=== PATIENT | female | born 1945 | race Hispanic/Latino ===

== ENCOUNTER 2017-06-11 14:27 | Inpatient (IN) | payer OTHER ==
[2017-06-11 14:27] VITALS: BMI 18.5
[2017-06-11] MEDS ORDERED: Sodium Chloride 0.9% 500 ML IV STA (15:06)
--- NOTE | 2017-06-11 15:09 | ED PDOC ---
HPI: Chest Pain Time Seen by Provider: 06/11/17 14:41 Chief Complaint (Nursing): Flu-like Symptoms Chief Complaint (Provider): Chest pain History Per: Patient History/Exam Limitations: no limitations Onset/Duration Of Symptoms: Days (4) Current Symptoms Are (Timing): Still Present Additional Complaint(s): Pt. with left chest pain going down left arm. Also feels weakness all over. No numbness, tingles, headaches, dizziness, neck pain. No fever or cough. No abd pain, dyspnea. No diarrhea, vomit. Past Medical History Reviewed: Nursing Documentation, Vital Signs Vital Signs: Last Vital Signs Temp 98 F 06/11/17 14:29 Pulse 78 06/11/17 14:29 Resp 18 06/11/17 14:29 BP 148/69 06/11/17 14:29 Pulse Ox 99 06/11/17 15:15 - Medical History PMH: Anxiety, Depression, Gastritis, HTN, Hypercholesterolemia, Hyperlipidemia Denies: HIV, Chronic Kidney Disease - Family History Family History: States: Unknown Family Hx - Social History Current smoker - smoking cessation education provided: No Alcohol: None Drugs: Denies - Home Medications Home Medications: Ambulatory Orders Medication Instructions Recorded HCTZ/Losartan Potassium [Hyzaar 1 tab PO DAILY 05/13/14 12.5 mg-50 mg] Omeprazole 40 mg PO DAILY 05/13/14 Pravastatin Sodium [Pravastatin] 20 mg PO HS 05/13/14 Acetaminophen/Butalbital/Caf 1 tab PO Q6H PRN 01/12/15 [Fioricet] Aspirin [Aspirin Chewable] 81 mg PO DAILY #0 chew 01/12/15 Azelastine HCl 1 drop EACHEYE BID 01/12/15 Enoxaparin [Lovenox] 40 mg SC DAILY #0 syr 01/12/15 Ibuprofen 800 mg PO DAILY PRN 01/12/15 Levocetirizine Dihydrochlori 5 mg PO DAILY 01/12/15 [Xyzal] Morphine 2 mg IVP Q6 PRN #0 cartridge 01/12/15 [id number] Ethyl Esters [Lovaza] 2 gm PO BID 01/12/15 clonazePAM [Klonopin] 0.5 mg PO HS 01/12/15 - Allergies Allergies/Adverse Reactions: Allergies Allergy/AdvReac Type Severity Reaction Status Date / Time No Known Allergies Allergy Verified 09/16/15 20:24 Review of Systems ROS Statement: Except As Marked, All Systems Reviewed And Found Negative Constitutional: Positive for: Weakness Cardiovascular: Positive for: Chest Pain Musculoskeletal: Positive for: Arm Pain Neurological: Positive for: Weakness Physical Exam - Reviewed Nursing Documentation Reviewed: Yes Vital Signs Reviewed: Yes - Physical Exam Appears: Positive for: Non-toxic, No Acute Distress Head Exam: Positive for: ATRAUMATIC, NORMAL INSPECTION, NORMOCEPHALIC Skin: Positive for: Normal Color, Warm, DRY Eye Exam: Positive for: EOMI, Normal appearance, PERRL ENT: Positive for: Normal ENT Inspection Neck: Positive for: Normal, Painless ROM Cardiovascular/Chest: Positive for: Regular Rate, Rhythm, Chest Non Tender. Negative for: Edema Respiratory: Positive for: CNT, Normal Breath Sounds Gastrointestinal/Abdominal: Positive for: Normal Exam, Bowel Sounds, Soft. Negative for: Tenderness Back: Positive for: Normal Inspection. Negative for: L CVA Tenderness, R CVA Tenderness Extremity: Positive for: Normal ROM. Negative for: Tenderness, Pedal Edema Neurologic/Psych: Positive for: Alert, stock taker II-XII, Oriented. Negative for: Motor/Sensory Deficits, Aphasia, Facial Droop - Laboratory Results Result Diagrams: 06/11/17 15:41 06/11/17 15:41 Interpretation Of Abn Labs: no acute - ECG ECG: Positive for: Interpreted By Me, Viewed By Ct ECG Rhythm: Positive for: Normal QRS, Normal ST Segment, Sinus Rhythm O2 Sat by Pulse Oximetry: 99 Pulse Ox Interpretation: Normal - Radiology X-Ray: Read By Radiologist X-Ray Interpretation: No Acute Disease - Progress ED Course And Treament: 1655: Stable. AAOx3. Spoke with Dr. Jeff. Will admit tele. Will give further orders when pt. reaches floor. Pt. pain free. Disposition - Clinical Impression Clinical Impression: Chest pain, Weakness - Patient ED Disposition Is Patient to be Admitted: No Counseled Patient/Family Regarding: Studies Performed, Diagnosis - Disposition Disposition Time: 16:56 Condition: FAIR - Pt Status Changed To: Hospital Disposition Of: Observation - POA Present On Arrival: None Core Measure Indicators: Chest Pain
[2017-06-11 15:47] LABS: BASO % 0.6 % (0.0-2.0); EOS % 0.5 % (0.0-4.0); LYMPH # 1.9 K/uL (1.0-4.3); LYMPH % 29.9 % (20.0-40.0); MEAN CORPUSCULAR HEMOGLOBIN 28.6 pg (27.0-31.0); MEAN CORPUSCULAR HGB CONC 32.6 g/dL (33.0-37.0); MEAN PLATELET VOLUME 9.8 fl (7.2-11.7); MONO # 0.4 K/uL (0.0-0.8); MONO % 6.7 % (0.0-10.0); NEUT % 62.3 % (50.0-75.0); RED CELL DISTRIBUTION WIDTH 13.8 % (11.5-14.5); WHITE BLOOD COUNT 6.5 K/uL (4.8-10.8)
[2017-06-11 15:56] LABS: ALB/GLOB RATIO 1.4 (1.0-2.1); ALKALINE PHOSPHATASE 75 U/L (38-126); ALT/SGPT 29 U/L (9-52); AST/SGOT 26 U/L (14-36); BILIRUBIN,TOTAL 0.5 mg/dl (0.2-1.3); BLOOD UREA NITROGEN 7 mg/dl (7-17); CALCIUM 9.3 mg/dL (8.4-10.2); CARBON DIOXIDE 31 mmol/L (22-30); CHLORIDE 105 mmol/L (98-107); GFR AFRICAN-AMERICAN > 60; GLUCOSE,RANDOM 91 mg/dL (65-105); POTASSIUM 4.6 MMOL/L (3.6-5.0); SODIUM 145 mmol/l (132-148); TOTAL PROTEIN 7.5 G/DL (6.3-8.2)
--- NOTE | 2017-06-11 16:06 | RAD ---
HISTORY: pain COMPARISON: Chest radiograph 09/17/2015. FINDINGS: LUNGS: No active pulmonary disease. PLEURA: No significant pleural effusion identified, no pneumothorax apparent. CARDIOVASCULAR: Normal. OSSEOUS STRUCTURES: No significant abnormalities. VISUALIZED UPPER ABDOMEN: Normal. OTHER FINDINGS: None. IMPRESSION: No interval acute cardiopulmonary disease appreciated.
[2017-06-11 16:07] LABS: PARTIAL THROMBOPLASTIN TIME 29.6 Seconds (25.6-37.1)
--- NOTE | 2017-06-11 16:34 | CT ---
PROCEDURE: CT HEAD WITHOUT CONTRAST. HISTORY: headache COMPARISON: None available. TECHNIQUE: Axial computed tomography images were obtained through the head/brain without intravenous contrast. Radiation dose: Total exam DLP = 752.67 mGy-cm. This CT exam was performed using one or more of the following dose reduction techniques: Automated exposure control, adjustment of the mA and/or kV according to patient size, and/or use of iterative reconstruction technique. FINDINGS: HEMORRHAGE: No intracranial hemorrhage. BRAIN: There is borderline expansion of the ventricular sulcal and cisternal spaces. Density throughout the granda matter and white matter structures above below the tentorium appears grossly unremarkable including throughout the brainstem. There is no mass effect or suspicious extra-axial fluid collection identified. Midline brain and appears diffusely unremarkable as well. The craniocervical junction appears intact. VENTRICLES: Unremarkable. No hydrocephalus. CALVARIUM: Unremarkable. PARANASAL SINUSES: Unremarkable as visualized. No significant inflammatory changes. MASTOID AIR CELLS: Unremarkable as visualized. No inflammatory changes. OTHER FINDINGS: None. IMPRESSION: Borderline diffuse cerebral atrophy with remainder the examination unremarkable. If symptoms persist or worsen consider follow-up CT Head or MRI or is otherwise may be indicated.
[2017-06-12 05:33] LABS: HEMATOCRIT 40.8 % (34.0-47.0); MEAN CELL VOLUME 88.3 fl (81.0-99.0); MEAN CORPUSCULAR HEMOGLOBIN 28.8 pg (27.0-31.0); MEAN CORPUSCULAR HGB CONC 32.6 g/dL (33.0-37.0); RED CELL DISTRIBUTION WIDTH 13.9 % (11.5-14.5); WHITE BLOOD COUNT 6.4 K/uL (4.8-10.8)
[2017-06-12 06:06] LABS: THYROID STIMULATING HORMONE 1.06 mIU/ML (0.46-4.68)
[2017-06-12 08:41] LABS: ALB/GLOB RATIO 1.3 (1.0-2.1); ALKALINE PHOSPHATASE 68 U/L (38-126); ALT/SGPT 22 U/L (9-52); AST/SGOT 51 U/L (14-36); BILIRUBIN,TOTAL 0.5 mg/dl (0.2-1.3); BLOOD UREA NITROGEN 10 mg/dl (7-17); CARBON DIOXIDE 27 mmol/L (22-30); CHLORIDE 108 mmol/L (98-107); CHOLESTEROL 223 mg/dL (0-199); GFR AFRICAN-AMERICAN > 60; GLUCOSE,RANDOM 87 mg/dL (65-105); POTASSIUM 4.3 MMOL/L (3.6-5.0); SODIUM 145 mmol/l (132-148); TOTAL PROTEIN 6.6 G/DL (6.3-8.2)
[2017-06-12] MEDS: Pantoprazole 40 mg EC Tab PO SCH (08:41)
[2017-06-12] MEDS: HCTZ/Losartan 12.5/50 Tab PO SCH (08:42)
[2017-06-12] MEDS: Enoxaparin 40 mg Syringe SC SCH (08:43)
[2017-06-12 09:05] LABS: TROPONIN I 0.014 ng/mL (0.00-0.120)
--- NOTE | 2017-06-12 09:07 | CP.PCM.HP ---
History of Present Illness - History of Present Illness History of Present Illness: 70 YO F was admitted for left sided chest pain radiating down her left arm yesterday. Patient states she was feeling well so she came to the hospital. Today patient is denying chest pain, SOB, and is feeling better. PMH: Anxiety, HTN, hyperlipidemia FH: Denies Allergy: Denies SH: Denies illicit drug use Present on Admission - Present on Admission Any Indicators Present on Admission: No Past Patient History - Infectious Disease Hx of Infectious Diseases: None - Tetanus Immunizations Tetanus Immunization: Unknown - Past Medical History & Family History Past Medical History?: Yes - Past Social History Smoking Status: Never Smoked - CARDIAC Hx Cardiac Disorders: Yes Hx Hypercholesterolemia: Yes Hx Hypertension: Yes - PULMONARY Hx Respiratory Disorders: No - NEUROLOGICAL Hx Neurological Disorder: No - HEENT Hx HEENT Problems: No - RENAL Hx Chronic Kidney Disease: No - ENDOCRINE/METABOLIC Hx Endocrine Disorders: No - HEMATOLOGICAL/ONCOLOGICAL Hx Blood Disorders: No - INTEGUMENTARY Hx Dermatological Problems: No - MUSCULOSKELETAL/RHEUMATOLOGICAL Hx Musculoskeletal Disorders: No Hx Falls: No - GASTROINTESTINAL Hx Gastrointestinal Disorders: Yes Hx Gastritis: Yes - GENITOURINARY/GYNECOLOGICAL Hx Genitourinary Disorders: No - PSYCHIATRIC Hx Psychophysiologic Disorder: Yes Hx Anxiety: Yes Hx Depression: Yes Hx Substance Use: No - SURGICAL HISTORY Hx Surgeries: Yes Hx Section: Yes (x 1) - ANESTHESIA Hx Anesthesia: Yes Hx Anesthesia Reactions: No Hx Malignant Hyperthermia: No Meds Allergies/Adverse Reactions: Allergies Allergy/AdvReac Type Severity Reaction Status Date / Time No Known Allergies Allergy Verified 09/16/15 20:24 Physical Exam - Constitutional Appears: No Acute Distress - Head Exam Head Exam: NORMAL INSPECTION - Eye Exam Eye Exam: Normal appearance - ENT Exam ENT Exam: Mucous Membranes Moist - Respiratory Exam Respiratory Exam: Clear to Auscultation Bilateral. absent: Rhonchi, Wheezes - Cardiovascular Exam Cardiovascular Exam: REGULAR RHYTHM, +S1, +S2 - GI/Abdominal Exam GI & Abdominal Exam: Normal Bowel Sounds, Soft. absent: Tenderness - Extremities Exam Extremities exam: Positive for: normal inspection. Negative for: calf tenderness - Skin Skin Exam: Normal Color, Warm Results - Vital Signs Recent Vital Signs: Last Vital Signs Temp 97.8 F 06/12/17 08:00 Pulse 56 L 06/12/17 08:00 Resp 18 06/12/17 08:00 BP 111/72 06/12/17 08:00 Pulse Ox 99 06/12/17 08:00 - Labs Result Diagrams: 06/12/17 04:30 06/12/17 04:30 Labs: Laboratory Results - last 24 hr 06/11/17 06/11/17 06/11/17 00:17 15:41 15:41 WBC 6.5 RBC 4.77 Hgb 13.7 Hct 42.0 MCV 88.0 D MCH 28.6 MCHC 32.6 L RDW 13.8 Plt Count 225 MPV 9.8 Neut % (Auto) 62.3 Lymph % (Auto) 29.9 Gordon % (Auto) 6.7 Eos % (Auto) 0.5 Baso % (Auto) 0.6 Neut # 4.0 Lymph # 1.9 Gordon # 0.4 Eos # 0.0 Baso # 0.0 PT INR APTT Sodium 145 Potassium 4.6 Chloride 105 Carbon Dioxide 31 H Anion Gap 14 BUN 7 Creatinine 0.6 L Est GFR ( Amer) > 60 Est GFR (Non-Af Amer) > 60 Random Glucose 91 Calcium 9.3 Total Bilirubin 0.5 AST 26 ALT 29 Alkaline Phosphatase 75 Troponin I < 0.0120 < 0.0120 Total Protein 7.5 Albumin 4.3 Globulin 3.2 Albumin/Globulin Ratio 1.4 Triglycerides Cholesterol LDL Cholesterol Direct HDL Cholesterol Vitamin B12 Total T3 TSH 3rd Generation 06/11/17 06/12/17 06/12/17 15:41 04:30 04:30 WBC 6.4 RBC 4.62 Hgb 13.3 Hct 40.8 MCV 88.3 MCH 28.8 MCHC 32.6 L RDW 13.9 Plt Count 213 MPV Neut % (Auto) Lymph % (Auto) Gordon % (Auto) Eos % (Auto) Baso % (Auto) Neut # Lymph # Gordon # Eos # Baso # PT 10.7 INR 1.0 APTT 29.6 Sodium 145 Potassium 4.3 Chloride 108 H Carbon Dioxide 27 Anion Gap 14 BUN 10 Creatinine 0.6 L Est GFR ( Amer) > 60 Est GFR (Non-Af Amer) > 60 Random Glucose 87 Calcium 9.0 Total Bilirubin 0.5 AST 51 H D ALT 22 Alkaline Phosphatase 68 Troponin I Total Protein 6.6 Albumin 3.7 Globulin 2.9 Albumin/Globulin Ratio 1.3 Triglycerides 201 H D Cholesterol 223 H LDL Cholesterol Direct 160 H HDL Cholesterol 21 L Vitamin B12 253 Total T3 1.23 L TSH 3rd Generation 1.06 Assessment & Plan - Assessment and Plan (Free Text) Assessment: 1) Chest pain - r/o ACS - EKG: WNL\ - Consult cardiology Troponin x 2 negative - Follow up with third troponin 2) HTN HCTZ/Losartan 3) DVT prophylaxis - Lovenox
[2017-06-12 09:09] LABS: T4 8.54 ug/dl (5.5-11.0)
--- NOTE | 2017-06-13 06:22 | CARD ---
APPROVED REPORT EXAM: Two-dimensional and M-mode echocardiogram with Doppler and color Doppler. Other Information Quality : FairRhythm : NSR INDICATION Chest Pain 2D DIMENSIONS IVSd0.92 (0.7-1.1cm)Aortic Root (2D)2.74 (2.0-3.7cm) LVDd3.71 (3.9-5.9cm)LVOT Diameter1.60 (1.8-2.4cm) PWd0.67 (0.7-1.1cm)IVSs1.14 (0.8-1.2cm) LVDs2.23 (2.5-4.0cm)FS (%) 39.8 % PWs0.88 (0.8-1.2cm) M-Mode DIMENSIONS Left Atrium (MM)1.65 (2.5-4.0cm)IVSd0.81 (0.7-1.1cm) Aortic Root2.55 (2.2-3.7cm)LVDd4.20 (4.0-5.6cm) Aortic Cusp Exc.1.65 (1.5-2.0cm)PWd0.93 (0.7-1.1cm) IVSs0.90 cmFS (%) 34 % LVDs2.77 (2.0-3.8cm)PWs1.09 cm Mitral Valve MV E Gkoiukyv20.7cm/sMV DECEL [id number] A Xmnfuenv76.0cm/s MV QID71qaQ/A ratio0.9MVA (PHT)2.98cm2 TDI Lateral E' Peak V10.19cm/sMedial E' Peak V10.59cm/sE/Lateral E'5.8 E/Medial E'5.5 Pulmonary Valve PV Peak Qjuljgbp21.3cm/s Tricuspid Valve TR Peak Hkwspwjp250ij/sRAP YFJFAIKV16aaPjFQ Peak Gr.15mmHg ODWG67zsDl LEFT VENTRICLE The left ventricle is normal size. There is normal left ventricular wall thickness. The left ventricular function is normal. The left ventricular ejection fraction is 60% There is normal LV segmental wall motion. The left ventricular diastolic function is normal. No left ventricle thrombus noted on this study. There is no ventricular septal defect visualized. There is no left ventricular aneurysm. There is no mass noted in the left ventricle. RIGHT VENTRICLE The right ventricle is normal size. There is normal right ventricular wall thickness. The right ventricular systolic function is normal. ATRIA The left atrium size is normal. The right atrium size is normal. The interatrial septum is intact with no evidence for an atrial septal defect. AORTIC VALVE The aortic valve is mildly sclerotic. No aortic regurgitation is present. There is no aortic valvular stenosis. There is no aortic valvular vegetation. MITRAL VALVE The mitral valve is normal in structure and function. There is no evidence of mitral valve prolapse. There is no mitral valve stenosis. There is no mitral valve regurgitation noted. TRICUSPID VALVE The tricuspid valve is normal in structure and function. There is no tricuspid valve regurgitation noted. There is no tricuspid valve prolapse or vegetation. There is no tricuspid valve stenosis. PULMONIC VALVE The pulmonary valve is normal in structure and function. There is no pulmonic valvular regurgitation. There is no pulmonic valvular stenosis. GREAT VESSELS The aortic root is normal in size. The ascending aorta is normal in size. The IVC is normal in size and collapses >50% with inspiration. PERICARDIAL EFFUSION The pericardium appears normal. There is no pleural effusion. <Conclusion> Normal LV Function Aortic Valve Sclerosis
--- NOTE | 2017-06-13 06:41 | CARD ---
APPROVED REPORT EKG Measurement Heart [id number] ID [id number] <Conclusion> Normal sinus rhythm Normal ECG
[2017-06-13] MEDS: Pantoprazole 40 mg EC Tab PO SCH (09:38)
[2017-06-13] MEDS: Enoxaparin 40 mg Syringe SC SCH (09:38)
[2017-06-13] MEDS: HCTZ/Losartan 12.5/50 Tab PO SCH (09:38)
--- NOTE | 2017-06-13 14:29 | PN ---
DATE: 06/13/2017 SUBJECTIVE: The patient is seen and examined. Interim events noted. Consults noted and appreciated. Cardiology followup and intervention noted and appreciated. The patient is tentatively scheduled for cardiac cath on Thursday. The patient feels okay. Denies any chest pain. No shortness of breath. PHYSICAL EXAMINATION GENERAL: The patient is in no acute distress. VITAL SIGNS: Stable. HEART: S1 and S2, normal and regular. LUNGS: Good bilateral air exchange. ABDOMEN: Soft and nontender. EXTREMITIES: No edema. No calf swelling. No tenderness. No acute ischemia. CENTRAL NERVOUS SYSTEM: Essentially unchanged. DIAGNOSTIC DATA: Available diagnostic data reviewed. Telemetry monitoring does not show significant arrhythmia. negative. ASSESSMENT AND PLAN: Overall, the patient's general medical condition is stable and improving. Plan as ordered. Jun Jeff MD
[2017-06-14 07:02] LABS: HEMATOCRIT 44.1 % (34.0-47.0); MEAN CELL VOLUME 87.3 fl (81.0-99.0); MEAN CORPUSCULAR HEMOGLOBIN 28.6 pg (27.0-31.0); MEAN CORPUSCULAR HGB CONC 32.8 g/dL (33.0-37.0); RED CELL DISTRIBUTION WIDTH 13.9 % (11.5-14.5); WHITE BLOOD COUNT 7.9 K/uL (4.8-10.8)
[2017-06-14 07:23] LABS: ALB/GLOB RATIO 1.3 (1.0-2.1); ALKALINE PHOSPHATASE 72 U/L (38-126); ALT/SGPT 29 U/L (9-52); AST/SGOT 24 U/L (14-36); BILIRUBIN,TOTAL 0.4 mg/dl (0.2-1.3); BLOOD UREA NITROGEN 11 mg/dl (7-17); CALCIUM 9.2 mg/dL (8.4-10.2); CARBON DIOXIDE 31 mmol/L (22-30); CHLORIDE 102 mmol/L (98-107); GFR AFRICAN-AMERICAN > 60; GLUCOSE,RANDOM 88 mg/dL (65-105); SODIUM 143 mmol/l (132-148); TOTAL PROTEIN 7.2 G/DL (6.3-8.2)
[2017-06-14] MEDS: Pantoprazole 40 mg EC Tab PO SCH (09:22)
[2017-06-14] MEDS: Enoxaparin 40 mg Syringe SC SCH (09:22)
[2017-06-14] MEDS: HCTZ/Losartan 12.5/50 Tab PO SCH (09:23)
--- NOTE | 2017-06-14 13:03 | PN ---
DATE: 06/14/2017 SUBJECTIVE: The patient was seen and examined. Interim events noted. The patient remains in intensive care unit on telemetry monitoring. Denies any chest pain, shortness of breath, or dizziness. PHYSICAL EXAMINATION: GENERAL: The patient is in no acute distress. VITAL SIGNS: Stable. HEART: S1 and S2, normal and regular. LUNGS: Good bilateral air exchange. ABDOMEN: Soft and nontender. EXTREMITIES: No edema. No calf swelling. No tenderness. No acute ischemia. CENTRAL NERVOUS SYSTEM: Essentially unchanged. DIAGNOSTIC DATA: Available diagnostic data reviewed. Telemetry monitoring does not reveal significant arrhythmias. ASSESSMENT AND PLAN: Overall, the patient's general medical condition is stable. The patient needs to have cardiac cath . Plan as ordered. Jun Jeff MD
--- NOTE | 2017-06-14 23:58 | CP.PCM.CON ---
Past Patient History - Infectious Disease Hx of Infectious Diseases: None - Tetanus Immunizations Tetanus Immunization: Unknown - Past Medical History & Family History Past Medical History?: Yes - Past Social History Smoking Status: Never Smoked - CARDIAC Hx Cardiac Disorders: Yes Hx Hypercholesterolemia: Yes Hx Hypertension: Yes - PULMONARY Hx Respiratory Disorders: No - NEUROLOGICAL Hx Neurological Disorder: No - HEENT Hx HEENT Problems: No - RENAL Hx Chronic Kidney Disease: No - ENDOCRINE/METABOLIC Hx Endocrine Disorders: No - HEMATOLOGICAL/ONCOLOGICAL Hx Blood Disorders: No - INTEGUMENTARY Hx Dermatological Problems: No - MUSCULOSKELETAL/RHEUMATOLOGICAL Hx Musculoskeletal Disorders: No Hx Falls: No - GASTROINTESTINAL Hx Gastrointestinal Disorders: Yes Hx Gastritis: Yes - GENITOURINARY/GYNECOLOGICAL Hx Genitourinary Disorders: No - PSYCHIATRIC Hx Psychophysiologic Disorder: Yes Hx Anxiety: Yes Hx Depression: Yes Hx Substance Use: No - SURGICAL HISTORY Hx Surgeries: Yes Hx Section: Yes (x 1) - ANESTHESIA Hx Anesthesia: Yes Hx Anesthesia Reactions: No Hx Malignant Hyperthermia: No Meds Allergies/Adverse Reactions: Allergies Allergy/AdvReac Type Severity Reaction Status Date / Time No Known Allergies Allergy Verified 09/16/15 20:24 - Medications Medications: Current Medications Acetaminophen (Tylenol 325mg Tab) 650 mg PO Q6 PRN PRN Reason: Pain, moderate (4-7) Last Admin: 06/14/17 09:27 Dose: 650 mg Aspirin (Aspirin Chewable) 81 mg PO DAILY [facility] Last Admin: 06/14/17 09:22 Dose: 81 mg Atorvastatin Calcium (Lipitor) 20 mg PO DAILY [facility] Last Admin: 06/14/17 13:55 Dose: Not Given Cyanocobalamin (Vitamin B12 1000 Mcg/Ml Inj) 1,000 mcg IM DAILY [facility] Last Admin: 06/14/17 09:23 Dose: 1,000 mcg Enoxaparin Sodium (Lovenox) 40 mg SC DAILY [facility] PRN Reason: Protocol Last Admin: 06/14/17 09:22 Dose: 40 mg Fluoxetine HCl (Prozac) 20 mg PO DAILY [facility] Last Admin: 06/14/17 09:22 Dose: 20 mg HCTZ/Losartan Potassium (Hyzaar 12.5 Mg-50 Mg) 1 tab PO DAILY [facility] Last Admin: 06/14/17 09:23 Dose: 1 tab Montelukast Sodium (Singulair) 10 mg PO [facility] Last Admin: 06/14/17 22:00 Dose: 10 mg Pantoprazole Sodium (Protonix Ec Tab) 40 mg PO DAILY [facility] Last Admin: 06/14/17 09:22 Dose: 40 mg Results - Vital Signs Recent Vital Signs: Last Vital Signs Temp 98.0 F 06/14/17 21:16 Pulse 66 06/14/17 21:16 Resp 18 06/14/17 21:16 BP 122/73 06/14/17 21:16 Pulse Ox 98 06/14/17 21:16 - Labs Result Diagrams: 06/14/17 06:00 06/14/17 06:00 Labs: Laboratory Results - last 24 hr 06/14/17 06/14/17 06:00 06:00 WBC 7.9 RBC 5.06 Hgb 14.5 Hct 44.1 MCV 87.3 MCH 28.6 MCHC 32.8 L RDW 13.9 Plt Count 244 Sodium 143 Potassium 4.0 Chloride 102 Carbon Dioxide 31 H Anion Gap 14 BUN 11 Creatinine 0.7 Est GFR ( Amer) > 60 Est GFR (Non-Af Amer) > 60 Random Glucose 88 Calcium 9.2 Total Bilirubin 0.4 AST 24 ALT 29 Alkaline Phosphatase 72 Total Protein 7.2 Albumin 4.1 Globulin 3.1 Albumin/Globulin Ratio 1.3
[2017-06-15] MEDS: Enoxaparin 40 mg Syringe SC SCH (09:14)
[2017-06-15] MEDS: Pantoprazole 40 mg EC Tab PO SCH (09:18)
[2017-06-15] MEDS: HCTZ/Losartan 12.5/50 Tab PO SCH (09:18)
[2017-06-15] MEDS ORDERED: Dextrose 5%/0.9% NS 1,000 ML IV SCH (09:30)
--- NOTE | 2017-06-15 13:32 | PN ---
DATE: 06/15/2017 SUBJECTIVE: Patient is seen and examined. Interim events noted. Consults noted and appreciated. Cardiology followup and intervention noted and appreciated. Patient remains in Progressive Care Unit with telemetry monitoring. Patient is for cardiac cath today. Patient feels okay. Denies any chest pain or shortness of breath. PHYSICAL EXAMINATION: GENERAL: Patient is in no acute distress. VITAL SIGNS: Stable. HEART: S1 and S2, normal and regular. LUNGS: Good bilateral air exchange. ABDOMEN: Soft, nontender. EXTREMITIES: No edema. No calf swelling. No tenderness. No acute ischemia. CENTRAL NERVOUS SYSTEM: Essentially unchanged. DIAGNOSTIC DATA: Available diagnostic data reviewed. Telemetry monitoring does not show significant arrhythmias. ASSESSMENT AND PLAN: Overall, patient is clinically stable. The patient is for cardiac cath today. Plan as ordered. Case and plan discussed with patient. Case and plan was also discussed with patient's family yesterday over the phone. Jun Jeff MD
--- NOTE | 2017-06-16 01:02 | CP.PCM.PN ---
Subjective - Date & Time of Evaluation Date of Evaluation: 06/15/17 Time of Evaluation: 12:00 Objective - Vital Signs/Intake and Output Vital Signs (last 24 hours): Temp Pulse Resp BP Pulse Ox 97.6 F 57 L 20 136/70 99 06/16/17 00:14 06/16/17 00:14 06/16/17 00:14 06/16/17 00:14 06/16/17 00:14 - Medications Medications: Current Medications Acetaminophen (Tylenol 325mg Tab) 650 mg PO Q6 PRN PRN Reason: Pain, moderate (4-7) Last Admin: 06/15/17 23:59 Dose: 650 mg Aspirin (Aspirin Chewable) 81 mg PO DAILY [facility] Last Admin: 06/15/17 09:18 Dose: Not Given Atorvastatin Calcium (Lipitor) 20 mg PO DAILY [facility] Last Admin: 06/15/17 09:18 Dose: Not Given Cyanocobalamin (Vitamin B12 1000 Mcg/Ml Inj) 1,000 mcg IM DAILY [facility] Last Admin: 06/15/17 09:18 Dose: Not Given Fluoxetine HCl (Prozac) 20 mg PO DAILY [facility] Last Admin: 06/15/17 09:18 Dose: Not Given HCTZ/Losartan Potassium (Hyzaar 12.5 Mg-50 Mg) 1 tab PO DAILY [facility] Last Admin: 06/15/17 09:18 Dose: Not Given Dextrose/Sodium Chloride (Dextrose 5%/0.9% Ns 1000 Ml) 1,000 mls @ 50 mls/hr IV .Q20H [facility] Stop: 06/16/17 09:18 Montelukast Sodium (Singulair) 10 mg PO HS [facility] Last Admin: 06/15/17 21:13 Dose: 10 mg Pantoprazole Sodium (Protonix Ec Tab) 40 mg PO DAILY [facility] Last Admin: 06/15/17 09:18 Dose: Not Given - Labs Labs: 06/14/17 06:00 06/14/17 06:00 PT 10.7 Seconds (9.8-13.1) 06/11/17 15:41 INR 1.0 (0.9-1.2) 06/11/17 15:41 APTT 29.6 Seconds (25.6-37.1) 06/11/17 15:41 - Constitutional Appears: Well - Head Exam Head Exam: ATRAUMATIC, NORMAL INSPECTION, NORMOCEPHALIC - Eye Exam Eye Exam: EOMI, Normal appearance, PERRL Pupil Exam: NORMAL ACCOMODATION, PERRL - ENT Exam ENT Exam: Mucous Membranes Moist, Normal Exam - Neck Exam Neck Exam: Full ROM, Normal Inspection. absent: Lymphadenopathy - Respiratory Exam Respiratory Exam: Clear to Ausculation Bilateral, NORMAL BREATHING PATTERN - Cardiovascular Exam Cardiovascular Exam: REGULAR RHYTHM, +S1, +S2. absent: Murmur - GI/Abdominal Exam GI & Abdominal Exam: Soft, Normal Bowel Sounds. absent: Tenderness - Rectal Exam Rectal Exam: NORMAL INSPECTION - Exam Exam: Circumcision, NORMAL INSPECTION External exam: NORMAL EXTERNAL EXAM Speculum exam: NORMAL SPECULUM EXAM Bimanual exam: NORMAL BIMANUAL EXAM - Extremities Exam Extremities Exam: Full ROM, Normal Capillary Refill, Normal Inspection. absent : Joint Swelling, Pedal Edema - Back Exam Back Exam: NORMAL INSPECTION - Neurological Exam Neurological Exam: Alert, Awake, CN II-XII Intact, Normal Gait, Oriented x3 - Psychiatric Exam Psychiatric exam: Normal Affect, Normal Mood - Skin Skin Exam: Dry, Intact, Normal Color, Warm Assessment and Plan (1) Chest pain Status: Acute (2) Weakness Status: Acute (3) Dizziness Status: Acute (4) Hyperlipemia, mixed Status: Chronic (5) Hypertension Status: Chronic
--- NOTE | 2017-06-16 08:03 | CP.PCM.PN ---
Subjective - Date & Time of Evaluation Date of Evaluation: 06/16/17 Time of Evaluation: 07:40 - Subjective Subjective: Patient seen and examined at bedside this morning. Patient states she slept well. Denies any overnight events. Denies any chest pain, SOB, nausea or vomiting today. Objective - Vital Signs/Intake and Output Vital Signs (last 24 hours): Temp Pulse Resp BP Pulse Ox 97.6 F 57 L 20 136/70 99 06/16/17 00:14 06/16/17 00:14 06/16/17 00:14 06/16/17 00:14 06/16/17 00:14 - Medications Medications: Current Medications Acetaminophen (Tylenol 325mg Tab) 650 mg PO Q6 PRN PRN Reason: Pain, moderate (4-7) Last Admin: 06/15/17 23:59 Dose: 650 mg Aspirin (Aspirin Chewable) 81 mg PO DAILY [facility] Last Admin: 06/15/17 09:18 Dose: Not Given Atorvastatin Calcium (Lipitor) 20 mg PO DAILY [facility] Last Admin: 06/15/17 09:18 Dose: Not Given Cyanocobalamin (Vitamin B12 1000 Mcg/Ml Inj) 1,000 mcg IM DAILY [facility] Last Admin: 06/15/17 09:18 Dose: Not Given Fluoxetine HCl (Prozac) 20 mg PO DAILY [facility] Last Admin: 06/15/17 09:18 Dose: Not Given HCTZ/Losartan Potassium (Hyzaar 12.5 Mg-50 Mg) 1 tab PO DAILY [facility] Last Admin: 06/15/17 09:18 Dose: Not Given Dextrose/Sodium Chloride (Dextrose 5%/0.9% Ns 1000 Ml) 1,000 mls @ 50 mls/hr IV .Q20H [facility] Stop: 06/16/17 09:18 Montelukast Sodium (Singulair) 10 mg PO HS [facility] Last Admin: 06/15/17 21:13 Dose: 10 mg Pantoprazole Sodium (Protonix Ec Tab) 40 mg PO DAILY [facility] Last Admin: 06/15/17 09:18 Dose: Not Given - Labs Labs: 06/14/17 06:00 06/14/17 06:00 PT 10.7 Seconds (9.8-13.1) 06/11/17 15:41 INR 1.0 (0.9-1.2) 06/11/17 15:41 APTT 29.6 Seconds (25.6-37.1) 06/11/17 15:41 - Constitutional Appears: No Acute Distress - Head Exam Head Exam: NORMAL INSPECTION - Eye Exam Eye Exam: Normal appearance - Respiratory Exam Respiratory Exam: Chest Wall Tenderness, Clear to Ausculation Bilateral, NORMAL BREATHING PATTERN - Cardiovascular Exam Cardiovascular Exam: REGULAR RHYTHM, +S1, +S2 - GI/Abdominal Exam GI & Abdominal Exam: Soft, Normal Bowel Sounds. absent: Tenderness - Extremities Exam Extremities Exam: Normal Inspection. absent: Calf Tenderness - Neurological Exam Neurological Exam: Alert, Awake, Oriented x3 - Skin Skin Exam: Normal Color, Warm Assessment and Plan - Assessment and Plan (Free Text) Assessment: 1) Chest pain - Troponin x 2 neg, 1 troponin is .014 - Cardio consult appreciated - F/U with official cardiac cath interpretation. 2) HTN HCTZ/Losartan 3) DVT prophylaxis - Lovenox
[2017-06-16 08:18] VITALS: RESP 18; O2SAT 98
[2017-06-16] MEDS: HCTZ/Losartan 12.5/50 Tab PO SCH (09:12)
[2017-06-16] MEDS: Pantoprazole 40 mg EC Tab PO SCH (09:12)
[2017-06-16] MEDS ORDERED: Metoprolol Succinate 25 mg XL Tab PO SCH (12:00)
[2017-06-16 12:43] VITALS: BP 108/59; PULSE 82; TEMP 98.9
--- NOTE | 2017-06-16 16:35 | CP.PCM.DIS ---
Provider - Provider Date of Admission: 06/12/17 14:18 Attending physician: Jun Jeff MD Time Spent in preparation of Discharge (in minutes): 30 Hospital Course - Lab Results Lab Results: Most Recent Lab Values WBC 7.9 K/uL (4.8-10.8) 06/14/17 06:00 RBC 5.06 Mil/uL (3.80-5.20) 06/14/17 06:00 Hgb 14.5 g/dL (12.0-16.0) 06/14/17 06:00 Hct 44.1 % (34.0-47.0) 06/14/17 06:00 MCV 87.3 fl (81.0-99.0) 06/14/17 06:00 MCH 28.6 pg (27.0-31.0) 06/14/17 06:00 MCHC 32.8 g/dL (33.0-37.0) L 06/14/17 06:00 RDW 13.9 % (11.5-14.5) 06/14/17 06:00 Plt Count 244 K/uL (130-400) 06/14/17 06:00 MPV 9.8 fl (7.2-11.7) 06/11/17 15:41 Neut % (Auto) 62.3 % (50.0-75.0) 06/11/17 15:41 Lymph % (Auto) 29.9 % (20.0-40.0) 06/11/17 15:41 [place] % (Auto) 6.7 % (0.0-10.0) 06/11/17 15:41 Eos % (Auto) 0.5 % (0.0-4.0) 06/11/17 15:41 Baso % (Auto) 0.6 % (0.0-2.0) 06/11/17 15:41 Neut # 4.0 K/uL (1.8-7.0) 06/11/17 15:41 Lymph # 1.9 K/uL (1.0-4.3) 06/11/17 15:41 [place] # 0.4 K/uL (0.0-0.8) 06/11/17 15:41 Eos # 0.0 K/uL (0.0-0.7) 06/11/17 15:41 Baso # 0.0 K/uL (0.0-0.2) 06/11/17 15:41 PT 10.7 Seconds (9.8-13.1) 06/11/17 15:41 INR 1.0 (0.9-1.2) 06/11/17 15:41 APTT 29.6 Seconds (25.6-37.1) 06/11/17 15:41 Sodium 143 mmol/l (132-148) 06/14/17 06:00 Potassium 4.0 MMOL/L (3.6-5.0) 06/14/17 06:00 Chloride 102 mmol/L (98-107) 06/14/17 06:00 Carbon Dioxide 31 mmol/L (22-30) H 06/14/17 06:00 Anion Gap 14 (10-20) 06/14/17 06:00 BUN 11 mg/dl (7-17) 06/14/17 06:00 Creatinine 0.7 mg/dL (0.7-1.2) 06/14/17 06:00 Est GFR ( Amer) > 60 06/14/17 06:00 Est GFR (Non-Af Amer) > 60 06/14/17 06:00 POC Glucose (mg/dL) 135 mg/dL (65-110) H 06/12/17 20:59 Random Glucose 88 mg/dL (65-105) 06/14/17 06:00 Calcium 9.2 mg/dL (8.4-10.2) 06/14/17 06:00 Total Bilirubin 0.4 mg/dl (0.2-1.3) 06/14/17 06:00 AST 24 U/L (14-36) 06/14/17 06:00 ALT 29 U/L (9-52) 06/14/17 06:00 Alkaline Phosphatase 72 U/L (38-126) 06/14/17 06:00 Troponin I 0.0140 ng/mL (0.00-0.120) 06/12/17 05:15 Total Protein 7.2 G/DL (6.3-8.2) 06/14/17 06:00 Albumin 4.1 g/dL (3.5-5.0) 06/14/17 06:00 Globulin 3.1 gm/dL (2.2-3.9) 06/14/17 06:00 Albumin/Globulin Ratio 1.3 (1.0-2.1) 06/14/17 06:00 Triglycerides 201 mg/DL (0-149) H D 06/12/17 04:30 Cholesterol 223 mg/dL (0-199) H 06/12/17 04:30 LDL Cholesterol Direct 160 mg/dL (0-129) H 06/12/17 04:30 HDL Cholesterol 21 MG/DL (30-70) L 06/12/17 04:30 Vitamin B12 253 pg/mL (239-931) 06/12/17 04:30 Thyroxine (T4) 8.54 ug/dl (5.5-11.0) 06/12/17 05:15 Total T3 1.23 nmol/L (1.49-2.60) L 06/12/17 04:30 TSH 3rd Generation 1.06 mIU/ML (0.46-4.68) 06/12/17 04:30 - Hospital Course Hospital Course: 70 YO F was admitted for left sided chest pain radiating down her left arm. Today patient is doing much better denies any chest pain , SOB, or palpitations. 1) Chest pain - Troponin x 2 neg, 1 troponin is .014 - Cardio consult appreciated - PAtient had a cardiac cath. - Has been cleared by cardio and advised to f/u outpatient 2) HTN HCTZ/Losartan Discharge Exam - Head Exam Head Exam: NORMAL INSPECTION - Eye Exam Eye Exam: Normal appearance - Respiratory Exam Respiratory Exam: Clear to PA & Lateral, NORMAL BREATHING PATTERN - Cardiovascular Exam Cardiovascular Exam: REGULAR RHYTHM, +S1, +S2 - GI/Abdominal Exam GI & Abdominal Exam: Normal Bowel Sounds, Unremarkable - Neurological Exam Neurological exam: Alert, CN II-XII Intact, Oriented x3 - Skin Skin Exam: Normal Color, Warm Discharge Plan - Discharge Medications Prescriptions: Aspirin [Ecotrin] 325 mg PO DAILY #30 tablet. Atorvastatin [Lipitor] 40 mg PO DAILY #30 tab Isosorbide Dinitrate 30 mg PO DAILY #30 tablet Metoprolol Succinate XL [Toprol XL] 25 mg PO DAILY #30 tab - Follow Up Plan Condition: FAIR Disposition: HOME/ ROUTINE Instructions: Weakness (ED) Additional Instructions: patient doing well today, denies cp. sob, dizziness, palpitations s/p L heart cath - R groin clean dry intact 40% LM 50% PLAD pt. started on BB,Statin, Nitrate,ASA, hctz/diovan pt. will f/u with outpatient [phone] f/u with pmd outpatient Rx for all meds sent to outpatient pharmacy Referrals: Pb Correa MD [Medical Doctor] - Tanner Russell MD [Staff Provider] -
== END 2017-06-16 13:41 | disposition home or self-care (01) | DRG 287 ==
LOC: H.ER 14:27 → H.ERHOLD 16:53 → H.TEL 18:34 → OBSVTOIN 06-12 14:18
PROVIDERS: ADMIT Internal Medicine; ATTEND Internal Medicine
PROC: 4A023N7 Measurement of Cardiac Sampling and Pressure, Left Heart, Percutaneous Approach (ICD-10-PCS; principal; 2017-06-15)
PROC: B206YZZ Plain Radiography of Right and Left Heart using Other Contrast (ICD-10-PCS; 2017-06-15)
DX: R07.9 Chest pain, unspecified (principal); I10 Essential (primary) hypertension; E78.2 Mixed hyperlipidemia; F41.9 Anxiety disorder, unspecified; K29.70 Gastritis, unspecified, without bleeding

== ENCOUNTER 2017-06-18 13:27 | Observation (INO) | payer OTHER ==
[2017-06-18 13:27] VITALS: BMI 21.4
[2017-06-18] MEDS ORDERED: Sodium Chloride 0.9% 1,000 ML IV STA (14:06)
--- NOTE | 2017-06-18 14:17 | ED PDOC ---
Syncope/Near Syncope/Dizziness Chief Complaint (Provider): WEAKNESS <Derik Pierson III - Last Filed: 06/18/17 16:36> History Per: Patient Additional Complaint(s): This is a 72 y/o F with a PMHx of Anxiety, HTN and HLD complaining of generalized weakness, severe headache, neck pain and body aches that began yesterday morning and is progressively aggravating. Pt came to ER due to an episode of chest pain 4 days ago, angiogram showed 50% of blockage according to patient. Pt took OTC Ibuprofen with NO improvement of symptoms. Pt denies CP, SOB, abdominal pain, change in bowel movement or peripheral edema. Allergies: NKDA PMHx: HTN and HLD. PSHx: 1 FHx: NC SHx: No tobacco, Alcohol or recreational drugs. <James Medrano - Last Filed: 06/18/17 19:33> Time Seen by Provider: 06/18/17 13:45 Chief Complaint (Nursing): Weakness/Neurological Deficit Past Medical History Vital Signs: Last Vital Signs Temp 98.9 F 06/18/17 13:34 Pulse 85 06/18/17 13:34 Resp 16 06/18/17 13:34 BP 90/50 L 06/18/17 13:34 Pulse Ox 96 06/18/17 16:23 <Derik Pierson III - Last Filed: 06/18/17 16:36> Vital Signs: Last Vital Signs Temp 98.9 F 06/18/17 13:34 Pulse 85 06/18/17 13:34 Resp 16 06/18/17 13:34 BP 90/50 L 06/18/17 13:34 Pulse Ox 96 06/18/17 13:34 - Medical History PMH: Anxiety, Depression, Gastritis, HTN, Hypercholesterolemia, Hyperlipidemia Denies: HIV, Chronic Kidney Disease - Surgical History Surgical History: Pacemaker - Family History Family History: States: Unknown Family Hx, Hypertension <James Medrano - Last Filed: 06/18/17 19:33> - Home Medications Home Medications: Ambulatory Orders Medication Instructions Recorded ALPRAZolam [Xanax] 0.25 mg PO TID PRN 06/11/17 FLUoxetine [Prozac] 20 mg PO DAILY 06/11/17 Losartan/Hydrochlorothiazide 1 tab PO DAILY 06/11/17 [Losartan-Hctz 50-12.5 mg Tab] Montelukast [Singulair] 10 mg PO HS 06/11/17 Omeprazole 40 mg PO DAILY 06/11/17 Aspirin [Ecotrin] 325 mg PO DAILY #30 tablet. 06/16/17 Atorvastatin [Lipitor] 40 mg PO DAILY #30 tab 06/16/17 Cyanocobalamin [Vitamin B12 1000 1,000 mcg IM DAILY vial 06/16/17 mcg/ml Inj] Isosorbide Dinitrate 30 mg PO DAILY #30 tablet 06/16/17 Metoprolol Succinate XL [Toprol XL] 25 mg PO DAILY #30 tab 06/16/17 - Allergies Allergies/Adverse Reactions: Allergies Allergy/AdvReac Type Severity Reaction Status Date / Time No Known Allergies Allergy Verified 09/16/15 20:24 Physical Exam - Reviewed Vital Signs Reviewed: Yes - Physical Exam Appears: Positive for: Well, No Acute Distress Head Exam: Positive for: ATRAUMATIC, NORMAL INSPECTION Eye Exam: Positive for: Normal appearance, EOMI ENT: Positive for: Normal ENT Inspection Neck: Positive for: Normal, Supple, Pain On Movement Of Neck Cardiovascular/Chest: Positive for: Regular Rate, Rhythm Respiratory: Positive for: Normal Breath Sounds Extremity: Positive for: Normal ROM. Negative for: Tenderness, Pedal Edema Neurologic/Psych: Positive for: Alert, material chaser II-XII ((grossly intact)), Oriented. Negative for: Motor/Sensory Deficits, Aphasia, Facial Droop <James Medrano - Last Filed: 06/18/17 19:33> - Laboratory Results Result Diagrams: 06/18/17 14:06 06/18/17 14:06 <Derik Pierson III - Last Filed: 06/18/17 16:36> - Laboratory Results Result Diagrams: 06/18/17 14:06 06/18/17 14:06 - ECG O2 Sat by Pulse Oximetry: 96 <James Medrano - Last Filed: 06/18/17 19:33> Medical Decision Making Medical Decision Making: ATTENDING NOTE Seen and examined w resident agree w findings D/w Dr Russell, rec US Duplex R leg Hgb drop 2 points from prior Mild elev lactate Improving w IVF Endorsed Dr Ferrara pending US and dispo <Derik Pierson III - Last Filed: 06/18/17 16:36> Medical Decision Makin72 y/o F with a PMHx of HLD, HTN and anxiety presenting with generalized weakness. Plan: --EKG --CBC --CMP --Troponin --CK --Urine dipstick --CXR --IV NSS 0.9% Presence of remarkable ecchymosis around catheterization insertion on right leg. US doppler ordered to r/o DVT or aneurysm. Pt complaining of persistent headache, will administer Acetaminophen PO and Head CT scan ordered. 19:25 Pt feeling nauseous. Zofran was ordered. Awaiting Doppler US of right extremity. Transfer of care to Dr Ferrara. <James Medrano - Last Filed: 06/18/17 19:33> Disposition <Derik Pierson III - Last Filed: 06/18/17 16:36> - Patient ED Disposition Is Patient to be Admitted: Transfer of Care (to Dr Ferrara.) - Disposition Disposition: Transfer of Care (to Dr Ferrara.) Disposition Time: 19:25 Patient Signed Over To: Fariba Ferrara <James Medrano - Last Filed: 06/18/17 19:33> - Clinical Impression Clinical Impression: Weakness generalized - Disposition Condition: FAIR Instructions: Weakness (ED) Forms: [facility] (Kyrgyz) Print Language: ROMANIAN
[2017-06-18 14:29] LABS: VENOUS BLOOD GAS BASE EXCESS -3.6 mmol/L (0.0-2.0); VENOUS BLOOD GAS PCO2 73 mmHg (40-60); VENOUS BLOOD PH 7.17 (7.32-7.43)
--- NOTE | 2017-06-18 14:31 | RAD ---
HISTORY: chest pain COMPARISON: 06/11/2017 TECHNIQUE: Chest PA and lateral FINDINGS: LUNGS: No active pulmonary disease. PLEURA: No significant pleural effusion identified. No pneumothorax apparent. CARDIOVASCULAR: Normal. OSSEOUS STRUCTURES: No significant abnormalities. VISUALIZED UPPER ABDOMEN: Normal. OTHER FINDINGS: None. IMPRESSION: No active disease.
[2017-06-18 14:32] LABS: BASO % 0.4 % (0.0-2.0); EOS % 0.1 % (0.0-4.0); HEMATOCRIT 37.6 % (34.0-47.0); LYMPH # 1.7 K/uL (1.0-4.3); LYMPH % 16.3 % (20.0-40.0); MEAN CELL VOLUME 86.9 fl (81.0-99.0); MEAN CORPUSCULAR HEMOGLOBIN 28.8 pg (27.0-31.0); MEAN CORPUSCULAR HGB CONC 33.2 g/dL (33.0-37.0); MONO # 0.6 K/uL (0.0-0.8); MONO % 5.4 % (0.0-10.0); NEUT # 8.2 K/uL (1.8-7.0); NEUT % 77.8 % (50.0-75.0); RED CELL DISTRIBUTION WIDTH 13.7 % (11.5-14.5); WHITE BLOOD COUNT 10.5 K/uL (4.8-10.8)
[2017-06-18 14:34] LABS: BLOOD UREA NITROGEN 13 mg/dl (7-17); CARBON DIOXIDE 27 mmol/L (22-30); CHLORIDE 102 mmol/L (98-107); GFR AFRICAN-AMERICAN > 60; GLUCOSE,RANDOM 144 mg/dL (65-105); SODIUM 141 mmol/l (132-148)
[2017-06-18 14:35] LABS: ALB/GLOB RATIO 1.3 (1.0-2.1); ALKALINE PHOSPHATASE 75 U/L (38-126); ALT/SGPT 30 U/L (9-52); AST/SGOT 23 U/L (14-36); BILIRUBIN,TOTAL 0.7 mg/dl (0.2-1.3); CALCIUM 9.1 mg/dL (8.4-10.2); TOTAL PROTEIN 7.4 G/DL (6.3-8.2)
[2017-06-18 15:03] LABS: RBC URINE 20 /hpf (0-3); URINE BACTERIA RARE (<OCC); URINE BILIRUBIN NEGATIVE (NEGATIVE); URINE BLOOD SMALL (NEGATIVE); URINE COLOR AMBER (YELLOW); URINE GLUCOSE (UA) NEG (Normal); URINE KETONE TRACE mg/dL (NEGATIVE); URINE LEUKOCYTE ESTERASE SMALL Leu/uL (Negative); URINE PROTEIN 30 mg/dL (NEGATIVE); WBC URINE 4 /hpf (0-5)
[2017-06-18 17:06] LABS: VENOUS BLOOD GAS BASE EXCESS 4.7 mmol/L (0.0-2.0); VENOUS BLOOD GAS MODE ROOM AIR; VENOUS BLOOD GAS PCO2 51 mmHg (40-60); VENOUS BLOOD PH 7.39 (7.32-7.43)
--- NOTE | 2017-06-18 17:31 | CT ---
PROCEDURE: CT HEAD WITHOUT CONTRAST. HISTORY: r/o ICH COMPARISON: Comparison made with prior CT scan brain dated 06/11/2017 TECHNIQUE: Axial computed tomography images were obtained through the head/brain without intravenous contrast. Radiation dose: Total exam DLP = 744.05 mGy-cm. This CT exam was performed using one or more of the following dose reduction techniques: Automated exposure control, adjustment of the mA and/or kV according to patient size, and/or use of iterative reconstruction technique. FINDINGS: HEMORRHAGE: No acute parenchymal, subarachnoid or extra-axial hemorrhage. Hemorrhage. BRAIN: Minor chronic periventricular white matter ischemic changes again seen. No evidence of large acute infarct. No obvious parenchymal nor extra-axial mass or collection. . Minimal early vascular calcifications of both carotid siphons Mild generalized volume loss. VENTRICLES: No obstructive hydrocephalus. CALVARIUM: Unremarkable. PARANASAL SINUSES: Unremarkable as visualized. No significant inflammatory changes. MASTOID AIR CELLS: Unremarkable as visualized. No inflammatory changes. OTHER FINDINGS: Orbits and contents grossly unremarkable. IMPRESSION: No acute intracranial hemorrhage. Mild chronic white matter ischemic changes.
--- NOTE | 2017-06-18 19:44 | ED PDOC ---
- Laboratory Results Result Diagrams: 06/19/17 04:20 06/19/17 04:20 - ECG O2 Sat by Pulse Oximetry: 96 - Progress ED Course And Treament: [address] Pierson. Pt pending US to r/o pseudoaneurysm. EXAM: US Duplex Right Lower Extremity Arteries EXAM DATE/TIME: 06/18/2017 4:02 PM CLINICAL HISTORY: 72 years old, female; Pain; Leg, upper; Right; Additional info: S/P cardiac cath ecchymosis r thigh TECHNIQUE: Real-time ultrasound scan of the arteries of the right lower extremity with 2-D granda scale, color Doppler flow and spectral waveform analysis. COMPARISON: No relevant prior studies available. FINDINGS: Right common femoral artery: No acute findings. No occlusion or significant stenosis. Normal waveform. Right superficial femoral artery: No acute findings. No occlusion or significant stenosis. Normal waveform. Right popliteal artery: No acute findings. No occlusion or significant stenosis. Normal waveform. Right calf/foot arteries: No acute findings. No occlusion or significant stenosis. Biphasic waveform. Soft tissues: Unremarkable. IMPRESSION: No acute findings. Thank you for allowing us to participate in the care of your patient. Dictated and Authenticated by: Carolynn Gonzalez MD 06/18/2017 7:26 PM Eastern Time ([place] & [place]) DW Dr Russell. Pt to be hospitalized for further evaluation to Dr. Jeff. Condition: Unchanged Disposition Discussed With : Jun Jeff Doctor Will See Patient In The: Hospital - Clinical Impression Clinical Impression: Weakness generalized - POA Present On Arrival: None - Disposition Disposition: Hospitalized as Observation Patient Disposition Time: 17:00 Condition: FAIR
[2017-06-18] MEDS ORDERED: Apap-Butalbital-Caffeine 325-50-40mg Tab PO PRN (22:31)
[2017-06-18] MEDS: Apap-Butalbital-Caffeine 325-50-40mg Tab PO PRN (23:00)
[2017-06-19] MEDS: Apap-Butalbital-Caffeine 325-50-40mg Tab PO PRN ×4 (04:50→21:23)
[2017-06-19 05:24] LABS: HEMATOCRIT 37.3 % (34.0-47.0); MEAN CELL VOLUME 87.7 fl (81.0-99.0); MEAN CORPUSCULAR HEMOGLOBIN 28.6 pg (27.0-31.0); MEAN CORPUSCULAR HGB CONC 32.6 g/dL (33.0-37.0); RED CELL DISTRIBUTION WIDTH 13.5 % (11.5-14.5); WHITE BLOOD COUNT 8.6 K/uL (4.8-10.8)
[2017-06-19 05:46] LABS: BLOOD UREA NITROGEN 10 mg/dl (7-17); CARBON DIOXIDE 30 mmol/L (22-30); CHLORIDE 103 mmol/L (98-107); GFR AFRICAN-AMERICAN > 60; GLUCOSE,RANDOM 102 mg/dL (65-105); POTASSIUM 4.1 MMOL/L (3.6-5.0); SODIUM 143 mmol/l (132-148); TOTAL PROTEIN 6.9 G/DL (6.3-8.2)
[2017-06-19 05:47] LABS: ALB/GLOB RATIO 1.3 (1.0-2.1); ALKALINE PHOSPHATASE 64 U/L (38-126); ALT/SGPT 29 U/L (9-52); AST/SGOT 21 U/L (14-36); BILIRUBIN,TOTAL 0.8 mg/dl (0.2-1.3)
--- NOTE | 2017-06-19 08:18 | CARD ---
APPROVED REPORT EKG Measurement Heart [id number] <Conclusion> Normal sinus rhythm with sinus arrhythmia Normal ECG
[2017-06-19] MEDS ORDERED: Patient's Own Med (Isosorbide Dinitrate [Isosorbide Dinitrate] 30 MG) PO SCH (09:00)
--- NOTE | 2017-06-19 09:23 | CP.PCM.HP ---
History of Present Illness - History of Present Illness History of Present Illness: 72 YO F w/ PMH of anxiety, htn and HLD presented to the ED for weakness, severe headache and body aches which started two days ago and have been worsening. Patient was previously admitted here 5 days back for chest pain and had a angiogram done. Since the procedure the patient has noticed increased area of bruising on her lateral portion of her right thigh. It is not tender. Pt denies CP, SOB, abdominal pain, change in bowel movement or peripheral edema. Allergies: NKDA PMHx: HTN and HLD. PSHx: 1 FHx: NC SHx: No tobacco, Alcohol or recreational drugs. Present on Admission - Present on Admission Any Indicators Present on Admission: No Past Patient History - Infectious Disease Hx of Infectious Diseases: None - Tetanus Immunizations Tetanus Immunization: Unknown - Past Medical History & Family History Past Medical History?: Yes - Past Social History Smoking Status: Never Smoked - CARDIAC Hx Cardiac Disorders: Yes - PULMONARY Hx Respiratory Disorders: No - NEUROLOGICAL Hx Neurological Disorder: No - HEENT Hx HEENT Problems: No - RENAL Hx Chronic Kidney Disease: No - ENDOCRINE/METABOLIC Hx Endocrine Disorders: No - HEMATOLOGICAL/ONCOLOGICAL Hx Blood Disorders: Yes - INTEGUMENTARY Hx Dermatological Problems: No - MUSCULOSKELETAL/RHEUMATOLOGICAL Hx Musculoskeletal Disorders: Yes - GASTROINTESTINAL Hx Gastritis: Yes - GENITOURINARY/GYNECOLOGICAL Hx Genitourinary Disorders: No - PSYCHIATRIC Hx Substance Use: No - SURGICAL HISTORY Hx Surgeries: Yes Hx Section: Yes (x 1) - ANESTHESIA Hx Anesthesia: Yes Hx Anesthesia Reactions: No Hx Malignant Hyperthermia: No Meds Allergies/Adverse Reactions: Allergies Allergy/AdvReac Type Severity Reaction Status Date / Time No Known Allergies Allergy Verified 09/16/15 20:24 Physical Exam - Constitutional Appears: Well, No Acute Distress - Head Exam Head Exam: ATRAUMATIC, NORMAL INSPECTION, NORMOCEPHALIC - Eye Exam Eye Exam: Normal appearance - Respiratory Exam Respiratory Exam: Clear to Auscultation Bilateral, NORMAL BREATHING PATTERN. absent: Rhonchi, Wheezes - Cardiovascular Exam Cardiovascular Exam: REGULAR RHYTHM, +S1, +S2 - GI/Abdominal Exam GI & Abdominal Exam: Normal Bowel Sounds, Soft. absent: Tenderness - Extremities Exam Extremities exam: Positive for: normal inspection. Negative for: calf tenderness - Neurological Exam Neurological exam: Alert, CN II-XII Intact, Oriented x3 - Skin Additional comments: Lateral portion of right thigh: Ecchymosis purplish in color approx 10 x 7 cm. Non tender on palpation Results - Vital Signs Recent Vital Signs: Last Vital Signs Temp 98.6 F 06/19/17 08:19 Pulse 61 06/19/17 08:19 Resp 18 06/19/17 08:19 BP 127/61 06/19/17 08:19 Pulse Ox 98 06/19/17 08:19 - Labs Result Diagrams: 06/19/17 04:20 06/19/17 04:20 Labs: Laboratory Results - last 24 hr 06/18/17 06/18/17 06/18/17 14:06 14:06 14:18 WBC 10.5 RBC 4.33 Hgb 12.5 D Hct 37.6 MCV 86.9 MCH 28.8 MCHC 33.2 RDW 13.7 Plt Count 246 MPV 10.0 Neut % (Auto) 77.8 H Lymph % (Auto) 16.3 L [place] % (Auto) 5.4 Eos % (Auto) 0.1 Baso % (Auto) 0.4 Neut # 8.2 H Lymph # 1.7 [place] # 0.6 Eos # 0.0 Baso # 0.0 pO2 35 VBG pH 7.17 L* VBG pCO2 73 H* VBG HCO3 20.8 VBG Total CO2 28.8 H VBG O2 Sat (Calc) 65.5 H VBG Base Excess -3.6 L VBG Potassium > 20.0 H* Glucose 153 H Lactate 2.1 FiO2 21.0 Blood Gas Comments Lactate 2.1 Crit Value Called To isaías Simmons Crit Value Called By 203 Crit Value Read Back Y Blood Gas Notified Time 1428 Sodium 141 129.0 L Potassium 4.0 Chloride 102 101.0 Carbon Dioxide 27 Anion Gap 16 BUN 13 Creatinine 0.6 L Est GFR ( Amer) > 60 Est GFR (Non-Af Amer) > 60 Random Glucose 144 H Calcium 9.1 Total Bilirubin 0.7 AST 23 ALT 30 Alkaline Phosphatase 75 Total Creatine Kinase 24 L Troponin I < 0.0120 Total Protein 7.4 Albumin 4.2 Globulin 3.2 Albumin/Globulin Ratio 1.3 Venous Blood Potassium > 20.0 H* Urine Color Urine Clarity Urine pH Ur Specific [place] Urine Protein Urine Glucose (UA) Urine Ketones Urine Blood Urine Nitrate Urine Bilirubin Urine Urobilinogen Ur Leukocyte Esterase Urine RBC (Auto) Urine Microscopic WBC Ur Squamous Epith Cells Urine Bacteria 06/18/17 06/18/17 06/18/17 14:25 16:58 23:12 WBC RBC Hgb Hct MCV MCH MCHC RDW Plt Count MPV Neut % (Auto) Lymph % (Auto) [place] % (Auto) Eos % (Auto) Baso % (Auto) Neut # Lymph # [place] # Eos # Baso # pO2 16 L VBG pH 7.39 VBG pCO2 51 VBG HCO3 26.5 VBG Total CO2 32.5 H VBG O2 Sat (Calc) 29.2 L VBG Base Excess 4.7 H VBG Potassium 4.7 Glucose 120 H Lactate 1.2 FiO2 21.0 Blood Gas Comments Crit Value Called To Crit Value Called By Crit Value Read Back Blood Gas Notified Time Sodium 139.0 Potassium Chloride 107.0 Carbon Dioxide Anion Gap BUN Creatinine Est GFR ( Amer) Est GFR (Non-Af Amer) Random Glucose Calcium Total Bilirubin AST ALT Alkaline Phosphatase Total Creatine Kinase Troponin I 0.0210 Total Protein Albumin Globulin Albumin/Globulin Ratio Venous Blood Potassium 4.7 Urine Color [place] Urine Clarity Slighty-cloudy Urine pH 6.0 Ur Specific [place] 1.025 Urine Protein 30 Urine Glucose (UA) Neg Urine Ketones Trace Urine Blood Small Urine Nitrate Negative Urine Bilirubin Negative Urine Urobilinogen 4.0 H Ur Leukocyte Esterase Small Urine RBC (Auto) 20 H Urine Microscopic WBC 4 Ur Squamous Epith Cells < 1 Urine Bacteria Rare 06/19/17 06/19/17 04:20 04:20 WBC 8.6 RBC 4.26 Hgb 12.2 Hct 37.3 MCV 87.7 MCH 28.6 MCHC 32.6 L RDW 13.5 Plt Count 231 MPV Neut % (Auto) Lymph % (Auto) [place] % (Auto) Eos % (Auto) Baso % (Auto) Neut # Lymph # [place] # Eos # Baso # pO2 VBG pH VBG pCO2 VBG HCO3 VBG Total CO2 VBG O2 Sat (Calc) VBG Base Excess VBG Potassium Glucose Lactate FiO2 Blood Gas Comments Crit Value Called To Crit Value Called By Crit Value Read Back Blood Gas Notified Time Sodium 143 Potassium 4.1 Chloride 103 Carbon Dioxide 30 Anion Gap 14 BUN 10 Creatinine 0.6 L Est GFR ( Amer) > 60 Est GFR (Non-Af Amer) > 60 Random Glucose 102 Calcium 9.0 Total Bilirubin 0.8 AST 21 ALT 29 Alkaline Phosphatase 64 Total Creatine Kinase Troponin I < 0.0120 Total Protein 6.9 Albumin 3.9 Globulin 3.0 Albumin/Globulin Ratio 1.3 Venous Blood Potassium Urine Color Urine Clarity Urine pH Ur Specific [place] Urine Protein Urine Glucose (UA) Urine Ketones Urine Blood Urine Nitrate Urine Bilirubin Urine Urobilinogen Ur Leukocyte Esterase Urine RBC (Auto) Urine Microscopic WBC Ur Squamous Epith Cells Urine Bacteria Assessment & Plan - Assessment and Plan (Free Text) Assessment: 1) Ecchymosis around catheterization site on right leg - F/U lower extremity U/S 2) Persistent headache - Ferocet 1 tab PO Q4 3)HTN - Continue with home meds 4) HLD Lipitor 40 PO daily 5) DVT prophylaxis - Lovenox
[2017-06-19] MEDS: Pantoprazole 40 mg EC Tab PO SCH (09:26)
[2017-06-19] MEDS: Enoxaparin 40 mg Syringe SC SCH ×2 (09:27→12:39)
[2017-06-19] MEDS: Metoprolol Succinate 25 mg XL Tab PO SCH (09:28)
[2017-06-19] MEDS: Aspirin 325 mg EC Tablets PO SCH ×2 (09:32→12:38)
--- NOTE | 2017-06-19 10:35 | US ---
PROCEDURE: Duplex ultrasound of the right lower extremity arteries. HISTORY: S/P CARDIAC CATH ECCHYMOSIS R THIGH COMPARISON: None available. TECHNIQUE: Grayscale and duplex Doppler evaluation of the right common femoral, superficial femoral, popliteal, posterior tibial and dorsalis pedis arteries was performed.. FINDINGS: COMMON FEMORAL ARTERY: Patent. Maximal flow velocity of 208.7 cm/s. SUPERFICIAL FEMORAL ARTERY:Patent. Maximal flow velocity of 139.8 cm/s. POPLITEAL ARTERY:Patent. Maximal flow velocity of 120.2 cm/s. POSTERIOR TIBIAL ARTERY: Patent. Maximal flow velocity of 47.2 cm/s. DORSALIS PEDIS ARTERY: Patent. Maximal flow velocity of 31.7 cm/s. OTHER FINDINGS: None. 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 No evidence of AV fistula or pseudoaneurysm. Concordant results (preliminary interpretation) provided by [facility]. Procedure Completed: 17:58 Preliminary ([facility]) Report: Dictated and Authenticated: 19:26 Final Interpretation: 10:33. June 19, 2017.
--- NOTE | 2017-06-19 11:19 | CP.PCM.PN ---
Subjective - Date & Time of Evaluation Date of Evaluation: 06/19/17 Time of Evaluation: 08:30 - Subjective Subjective: Kvng Castro DO PGY1 - Cardiology Progress Note for Dr. Russell Patient seen and examined at bedside. Patient was admitted yesterday for dehydration and generalized weakness. A mild relative drop in her H/H was noted compared to prior admission, but it is still within the normal range, and she denies any active bleeding. Today, she reports mild improvement in her symptoms. She denies any CP, SOB, or palpitations. She has mild pain in her right groin at rest, and mild tenderness. Objective - Vital Signs/Intake and Output Vital Signs (last 24 hours): Temp Pulse Resp BP Pulse Ox 98.6 F 64 18 127/61 98 06/19/17 08:19 06/19/17 09:28 06/19/17 08:19 06/19/17 09:28 06/19/17 08:19 - Medications Medications: Current Medications Acetaminophen/Butalbital/Caffeine (Fioricet) 1 tab PO Q4 PRN PRN Reason: Headache Last Admin: 06/19/17 04:50 Dose: 1 tab Alprazolam (Xanax) 0.25 mg PO TID PRN PRN Reason: Anxiety Stop: 06/25/17 22:29 Last Admin: 06/19/17 10:22 Dose: 0.25 mg Aspirin (Ecotrin) 325 mg PO DAILY [facility] Atorvastatin Calcium (Lipitor) 40 mg PO DAILY [facility] Last Admin: 06/19/17 09:26 Dose: 40 mg Enoxaparin Sodium (Lovenox) 40 mg SC DAILY [facility] PRN Reason: Protocol Fluoxetine HCl (Prozac) 20 mg PO DAILY [facility] Last Admin: 06/19/17 09:28 Dose: 20 mg Isosorbide Dinitrate (Isordil) 30 mg PO DAILY [facility] Last Admin: 06/19/17 09:27 Dose: 30 mg Metoprolol Succinate (Toprol Xl) 25 mg PO DAILY [facility] Last Admin: 06/19/17 09:28 Dose: 25 mg Montelukast Sodium (Singulair) 10 mg PO HS [facility] Last Admin: 06/18/17 23:00 Dose: 10 mg Pantoprazole Sodium (Protonix Ec Tab) 40 mg PO DAILY [facility] Last Admin: 06/19/17 09:26 Dose: 40 mg - Labs Labs: 10/20/17 04:20 06/19/17 04:20 - Constitutional Appears: Non-toxic, No Acute Distress - Head Exam Head Exam: ATRAUMATIC, NORMOCEPHALIC - Eye Exam Eye Exam: EOMI, Normal appearance - ENT Exam ENT Exam: Mucous Membranes Dry - Neck Exam Neck Exam: Normal Inspection - Respiratory Exam Respiratory Exam: Clear to Ausculation Bilateral, NORMAL BREATHING PATTERN - Cardiovascular Exam Cardiovascular Exam: RRR, +S1, +S2 - Extremities Exam Extremities Exam: absent: Calf Tenderness, Pedal Edema Additional comments: Large right groin ecchymosis, dark purple, appears to be healing, small firm subcutaneous nodule, likely old hematoma, appears to be unchanged since discharge a few days ago - Neurological Exam Neurological Exam: Alert, Awake - Psychiatric Exam Psychiatric exam: Normal Affect, Normal Mood - Skin Skin Exam: Dry, Intact Additional comments: poor turgor Assessment and Plan (1) CAD (coronary artery disease) Assessment & Plan: Patient has history of CAD, s/p SILICA [employer] MIXER on 06/15/17 which showed mild-mod left main and proximal LAD stenosis Patient tolerated procedure well, right groin edema noted after procedure, but no hematoma; good hemostasis acheived Patient currently has large ecchymosis where she previously had some edema; appears to be healing Patient is not currently complaining of CP, SOB, or palpitations Troponins negative x3 Continue ASA, Statin, BB, ACEi, and Nitrate Status: Acute (2) Dehydration Assessment & Plan: Patient received IVF bolus yesterday Appears to have a viral, flu-like illness; likely the cause of her myalgias, headache, and subjective fevers Currently tolerating PO, encouraged increase PO fluid intake Status: Acute
[2017-06-20 00:18] VITALS: RESP 18
[2017-06-20] MEDS: Apap-Butalbital-Caffeine 325-50-40mg Tab PO PRN (03:06)
[2017-06-20] MEDS: Aspirin 325 mg EC Tablets PO SCH (09:40)
[2017-06-20] MEDS: Enoxaparin 40 mg Syringe SC SCH (09:40)
[2017-06-20] MEDS: Pantoprazole 40 mg EC Tab PO SCH (09:40)
[2017-06-20] MEDS: Metoprolol Succinate 25 mg XL Tab PO SCH (09:41)
--- NOTE | 2017-06-20 11:36 | PN ---
DATE: 06/20/2017 SUBJECTIVE: The patient is seen and examined. Interim events noted. Consults noted and appreciated. Cardiology followup and intervention noted and appreciated. The patient remains in Progressive Care Unit on telemetry monitoring. Feels much better. Headache resolved. Abdominal pain resolved. Right leg pain which is present, but improving and controlled on current medication. No chest pain. No shortness of breath. PHYSICAL EXAMINATION: GENERAL: The patient is in no acute distress. VITAL SIGNS: Stable. HEART: S1 and S2, normal and regular. LUNGS: Good bilateral air exchange. ABDOMEN: Soft, nontender. EXTREMITIES: No edema. No calf swelling. No tenderness. No acute ischemia. SKIN: Right groin region, the patient has ecchymosis, but no tenderness or hematoma surrounding. No sign of distal neurovascular compromise. CENTRAL NERVOUS SYSTEM: Essentially unchanged. DIAGNOSTIC DATA: Available diagnostic data reviewed. Telemetry monitoring does not reveal significant arrhythmias. ASSESSMENT AND PLAN: Overall, the patient's general medical condition is stable. Plan as ordered. Jun eJff MD
[2017-06-20 12:16] VITALS: BP 106/59; PULSE 53; TEMP 98.7
[2017-06-20 19:07] VITALS: O2SAT 96
== END 2017-06-20 16:00 | disposition home or self-care (01) ==
LOC: H.ER 13:27 → H.ERHOLD 19:58 → H.TEL 22:07
PROVIDERS: ADMIT Internal Medicine; ATTEND Internal Medicine
DX: E86.0 Dehydration (principal); I25.10 Atherosclerotic heart disease of native coronary artery without angina pectoris; E78.00 Pure hypercholesterolemia, unspecified; F32.9 Major depressive disorder, single episode, unspecified; E78.5 Hyperlipidemia, unspecified; I10 Essential (primary) hypertension; Z79.82 Long term (current) use of aspirin; Z79.899 Other long term (current) drug therapy; F41.9 Anxiety disorder, unspecified; K29.70 Gastritis, unspecified, without bleeding; M79.606 Pain in leg, unspecified; M54.2 Cervicalgia; M79.604 Pain in right leg; R10.9 Unspecified abdominal pain; R51 Headache; S70.11XA Contusion of right thigh, initial encounter; Y84.0 Cardiac catheterization as the cause of abnormal reaction of the patient, or of later complication, without mention of misadventure at the time of the procedure; Y82.9 Unspecified medical devices associated with adverse incidents
CPT/HCPCS: 36415; 70450; 71020; 80053; 81003; 82550; 82803; 84484; 85025; 85027; 93005; 93926; 96374; 99283; G0378; J1650; J2405; J3420; J7040

== ENCOUNTER 2017-12-29 04:37 | Emergency (ER) | payer OTHER ==
[2017-12-29 04:37] VITALS: BMI 21.4
[2017-12-29 05:47] LABS: BASO # 0.1 K/uL (0.0-0.2); BASO % 0.8 % (0.0-2.0); EOS # 0.1 K/uL (0.0-0.7); EOS % 1.4 % (0.0-4.0); HEMOGLOBIN 12.7 g/dL (12.0-16.0); LYMPH # 1.6 K/uL (1.0-4.3); LYMPH % 25.7 % (20.0-40.0); MEAN CELL VOLUME 89.6 fl (81.0-99.0); MEAN CORPUSCULAR HEMOGLOBIN 29.4 pg (27.0-31.0); MEAN CORPUSCULAR HGB CONC 32.8 g/dL (33.0-37.0); MONO # 0.5 K/uL (0.0-0.8); NEUT # 3.9 K/uL (1.8-7.0); NEUT % 64.1 % (50.0-75.0); RBC 4.32 Mil/uL (3.80-5.20); RED CELL DISTRIBUTION WIDTH 13.7 % (11.5-14.5)
[2017-12-29 05:54] LABS: ALB/GLOB RATIO 1.2 (1.0-2.1); ALBUMIN 3.8 g/dL (3.5-5.0); CALCIUM 9.1 mg/dL (8.4-10.2); GFR AFRICAN-AMERICAN > 60; GFR NON-AFRICAN AMERICAN > 60
--- NOTE | 2017-12-29 05:56 | ED PDOC ---
HPI: General Adult Time Seen by Provider: 12/29/17 04:39 Chief Complaint (Nursing): Dizziness/Lightheaded Chief Complaint (Provider): Dizziness History Per: Patient History/Exam Limitations: no limitations Onset/Duration Of Symptoms: Days (x1 day) Current Symptoms Are (Timing): Still Present Additional Complaint(s): 72 year old female presents to ED with complaints of dizziness x1 day and has a past medical history of HTN and hypercholesterolemia. Reports that dizziness is evokes when moving her head side to side. Patient notes she took Thorazine 100mg as she believed the dizziness was secondary to anxiety. Describes the dizziness as the "world spinning". Confirms that she fell on her buttocks secondary to dizziness. (-) fever, vomiting, chest pain, or SOB. PCP: Lauren Shane Past Medical History Reviewed: Historical Data, Nursing Documentation, Vital Signs Vital Signs: Last Vital Signs Temp 97.8 F 12/29/17 07:01 Pulse 64 12/29/17 07:01 Resp 18 12/29/17 07:01 BP 138/85 12/29/17 07:01 Pulse Ox 100 12/29/17 07:01 - Medical History PMH: Anxiety, Depression, Gastritis, HTN, Hypercholesterolemia, Hyperlipidemia Denies: HIV, Chronic Kidney Disease - Surgical History Surgical History: Pacemaker, - Family History Family History: States: Unknown Family Hx, Hypertension - Living Arrangements Living Arrangements: With Family - Social History Current smoker - smoking cessation education provided: No Ex-Smoker (has not smoked in the last 12 months): No Alcohol: None Drugs: Denies - Home Medications Home Medications: Ambulatory Orders Medication Instructions Recorded ALPRAZolam [Xanax] 0.25 mg PO TID PRN 06/11/17 FLUoxetine [Prozac] 20 mg PO DAILY 06/11/17 Losartan/Hydrochlorothiazide 1 tab PO DAILY 06/11/17 [Losartan-Hctz 50-12.5 mg Tab] Montelukast [Singulair] 10 mg PO HS 06/11/17 Omeprazole 40 mg PO DAILY 06/11/17 Aspirin [Ecotrin] 325 mg PO DAILY #30 tablet. 06/16/17 Atorvastatin [Lipitor] 40 mg PO DAILY #30 tab 06/16/17 Cyanocobalamin [Vitamin B12 1000 1,000 mcg IM DAILY vial 06/16/17 mcg/ml Inj] Isosorbide Dinitrate 30 mg PO DAILY #30 tablet 06/16/17 Metoprolol Succinate XL [Toprol XL] 25 mg PO DAILY #30 tab 06/16/17 Acetaminophen/Butalbital/Caf 1 tab PO Q4 PRN tab 06/20/17 [Fioricet] Pantoprazole [Protonix EC Tab] 40 mg PO DAILY ect 06/20/17 Meclizine [Antivert] 12.5 mg PO Q6H PRN #4 tab 12/29/17 - Allergies Allergies/Adverse Reactions: Allergies Allergy/AdvReac Type Severity Reaction Status Date / Time No Known Allergies Allergy Verified 09/16/15 20:24 Review of Systems ROS Statement: Except As Marked, All Systems Reviewed And Found Negative Constitutional: Negative for: Fever Cardiovascular: Negative for: Chest Pain Respiratory: Negative for: Shortness of Breath Gastrointestinal: Negative for: Vomiting Neurological: Positive for: Dizziness Physical Exam - Reviewed Nursing Documentation Reviewed: Yes Vital Signs Reviewed: Yes - Physical Exam Appears: Positive for: Non-toxic, No Acute Distress Skin: Positive for: Normal Color, Warm, Dry Eye Exam: Positive for: Normal appearance Neck: Positive for: Normal (dizzines is evoked when she turns head) Cardiovascular/Chest: Positive for: Regular Rate, Rhythm. Negative for: Murmur Respiratory: Positive for: Normal Breath Sounds. Negative for: Respiratory Distress Gastrointestinal/Abdominal: Positive for: Soft. Negative for: Tenderness Extremity: Positive for: Normal ROM. 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 Negative for: Motor/Sensory Deficits - Laboratory Results Result Diagrams: 12/29/17 05:35 12/29/17 05:35 - ECG ECG: Positive for: Interpreted By Me, Viewed By Me ECG Rhythm: Positive for: Normal ST Segment, Sinus Rhythm Rate: 63 O2 Sat by Pulse Oximetry: 98 (RA) Pulse Ox Interpretation: Normal Medical Decision Making Medical Decision Makin Initial impression: dizziness r/o vertigo Initial plan: * CT HEAD * Labs * Antivert 25mg PO * Re-eval 0548 CT FINDINGS: Brain: Normal. No hemorrhage. No significant white matter disease. No edema. Ventricles: Normal. No ventriculomegaly. Bones/joints: Normal. No acute fracture. Soft tissues: Normal. Sinuses: Unremarkable as visualized. No acute sinusitis. Mastoid air cells: Unremarkable as visualized. No mastoid effusion. IMPRESSION: Since 06/18/17, no significant interval change. No acute intracranial hemorrhage. 0650 Upon re-evaluation patient is feeling much better after meclizine and is stable for discharge home. Patient will follow up with PCP in 1-2 days. Scribe Attestation: Documented by Alexandra Huitron acting as a scribe for Arminda Martinez MD. Scribe Attestation: All medical record entries made by the Scribe were at my direction and personally dictated by me. I have reviewed the chart and agree that the record accurately reflects my personal performance of the history, physical exam, medical decision making, and the department course for this patient. I have also personally directed, reviewed, and agree with the discharge instructions and disposition. Disposition - Clinical Impression Clinical Impression: Vertigo - Patient ED Disposition Is Patient to be Admitted: No Counseled Patient/Family Regarding: Studies Performed, Diagnosis, Need For Followup - Disposition Referrals: Pb Correa MD [Primary Care Provider] - Disposition: Routine/Home Disposition Time: 06:30 Condition: IMPROVED Additional Instructions: follow up with Dr Shane tomorrow for a reevaluation return to the ED with any worsening or concerning symptoms or if the dizziness doesnt improve. Prescriptions: Meclizine [Antivert] 12.5 mg PO Q6H PRN #4 tab PRN Reason: Dizziness Instructions: Vertigo (a Type of Dizziness) Forms: [employer] (Korean) Print Language: ICELANDIC
[2017-12-29 06:21] LABS: ALT/SGPT 39 U/L (9-52); AST/SGOT 31 U/L (14-36); BLOOD UREA NITROGEN 10 mg/dl (7-17)
[2017-12-29 06:58] VITALS: BP 138/85; RESP 18; TEMP 97.8
--- NOTE | 2017-12-29 08:17 | CT ---
PROCEDURE: CT HEAD WITHOUT CONTRAST. HISTORY: headache COMPARISON: CT head dated 06/18/2017 TECHNIQUE: Axial computed tomography images were obtained through the head/brain without intravenous contrast. Radiation dose: Total exam DLP = 676 mGy-cm. This CT exam was performed using one or more of the following dose reduction techniques: Automated exposure control, adjustment of the mA and/or kV according to patient size, and/or use of iterative reconstruction technique. FINDINGS: HEMORRHAGE: No intracranial hemorrhage. BRAIN: No mass effect or edema. Mild scattered focal lucencies in the subcortical and periventricular white matter suggestive for chronic microvascular ischemic change. VENTRICLES: Unremarkable. No hydrocephalus. CALVARIUM: Unremarkable. PARANASAL SINUSES: Unremarkable as visualized. No significant inflammatory changes. MASTOID AIR CELLS: Unremarkable as visualized. No inflammatory changes. OTHER FINDINGS: None. IMPRESSION: No acute intracranial abnormality. If symptoms persists, consider further evaluation with MRI. These findings were preliminarily reported at 5:48 a.m. on 12/29/[address] Silverio Wilburn from [facility].
--- NOTE | 2017-12-29 18:51 | CARD ---
APPROVED REPORT EKG Measurement Heart [id number] <Conclusion> Normal sinus rhythm Normal ECG
[2017-12-30 19:28] VITALS: PULSE 63; O2SAT 98
== END 2017-12-29 07:11 | disposition home or self-care (01) ==
LOC: H.ER 04:37
DX: R42 Dizziness and giddiness (principal); E78.00 Pure hypercholesterolemia, unspecified; F32.9 Major depressive disorder, single episode, unspecified; F41.9 Anxiety disorder, unspecified; I10 Essential (primary) hypertension; Z79.82 Long term (current) use of aspirin; Z87.891 Personal history of nicotine dependence; Z95.0 Presence of cardiac pacemaker

== ENCOUNTER 2018-02-10 14:44 | Observation (INO) | payer OTHER ==
[2018-02-10 14:45] VITALS: BMI 21.4
--- NOTE | 2018-02-10 15:18 | ED PDOC ---
HPI: Chest Pain Time Seen by Provider: 02/10/18 15:00 Chief Complaint (Nursing): Dizziness/Lightheaded Chief Complaint (Provider): chest pain and dizziness History Per: Patient History/Exam Limitations: no limitations Onset/Duration Of Symptoms: Hrs (x4) Current Symptoms Are (Timing): Still Present Quality: Pressure Associated Symptoms: denies: Dyspnea Additional Complaint(s): Marty Carreno is a 72 year old female, with a past medical history of HTN and hypercholesterolemia, who presents to the emergency department complaining of chest pain, dizziness and generalized weakness onset for x4 hrs. Patient describes the chest pain as pressure-like and located on the left side, she was cleaning the house when symptoms occurred. She states dizziness is not room spinning. Patient reports she had a similar pain in May and was seen here for it. She denies any fever, chills, shortness of breath, headache, numbness or tingling, abdominal pain, nausea, vomit or diarrhea. No further medical complaints. PMD: Dr. Correa in [place] Past Medical History Reviewed: Historical Data, Nursing Documentation, Vital Signs Vital Signs: Last Vital Signs Temp 98.3 F 02/10/18 14:52 Pulse 67 02/10/18 15:10 Resp 14 02/10/18 15:10 BP 140/85 02/10/18 15:10 Pulse Ox 100 02/10/18 15:35 - Medical History PMH: Anxiety, Depression, Gastritis, HTN, Hypercholesterolemia Denies: HIV, Chronic Kidney Disease - Family History Family History: States: Unknown Family Hx, Hypertension - Living Arrangements Living Arrangements: With Family - Social History Current smoker - smoking cessation education provided: No Alcohol: None Drugs: Denies - Immunization History Hx Tetanus Toxoid Vaccination: No Hx Influenza Vaccination: No Hx Pneumococcal Vaccination: Yes - Home Medications Home Medications: Ambulatory Orders Medication Instructions Recorded ALPRAZolam [Xanax] 0.25 mg PO TID PRN 06/11/17 FLUoxetine [Prozac] 20 mg PO DAILY 06/11/17 Losartan/Hydrochlorothiazide 1 tab PO DAILY 06/11/17 [Losartan-Hctz 50-12.5 mg Tab] Montelukast [Singulair] 10 mg PO HS 06/11/17 Omeprazole 40 mg PO DAILY 06/11/17 Aspirin [Ecotrin] 325 mg PO DAILY #30 tablet.dr 06/16/17 Atorvastatin [Lipitor] 40 mg PO DAILY #30 tab 06/16/17 Cyanocobalamin [Vitamin B12 1000 1,000 mcg IM DAILY vial 06/16/17 mcg/ml Inj] Isosorbide Dinitrate 30 mg PO DAILY #30 tablet 06/16/17 Metoprolol Succinate XL [Toprol XL] 25 mg PO DAILY #30 tab 06/16/17 Acetaminophen/Butalbital/Caf 1 tab PO Q4 PRN tab 06/20/17 [Fioricet] Pantoprazole [Protonix EC Tab] 40 mg PO DAILY ect 06/20/17 Meclizine [Antivert] 12.5 mg PO Q6H PRN #4 tab 12/29/17 - Allergies Allergies/Adverse Reactions: Allergies Allergy/AdvReac Type Severity Reaction Status Date / Time No Known Allergies Allergy Verified 09/16/15 20:24 LAUREL Risk Score for UA/NSTEMI - LAUREL Risk Score Age > 64: YES Known CAD (Stenosis greater than 50%): NO Aspirin use in past 7 days: NO Severe Angina: NO EKG ST changes greater than 0.5mm: NO Positive Cardiac Marker: NO LAUREL Score: 1 Risk %: 5% Review of Systems ROS Statement: Except As Marked, All Systems Reviewed And Found Negative Constitutional: Positive for: Weakness (generalized). Negative for: Fever, Chills Cardiovascular: Positive for: Chest Pain (left sided pressure) Respiratory: Negative for: Shortness of Breath Gastrointestinal: Negative for: Vomiting, Abdominal Pain, Diarrhea Neurological: Positive for: Dizziness. Negative for: Weakness, Numbness, Headache Physical Exam - Reviewed Nursing Documentation Reviewed: Yes Vital Signs Reviewed: Yes - Physical Exam Appears: Positive for: Non-toxic Head Exam: Positive for: ATRAUMATIC, NORMOCEPHALIC Skin: Positive for: Normal Color, Warm, Dry Eye Exam: Positive for: Normal appearance, EOMI, PERRL ENT: Positive for: Normal ENT Inspection Neck: Positive for: Painless ROM, Supple Cardiovascular/Chest: Positive for: Regular Rate, Rhythm. Negative for: Murmur Respiratory: Positive for: Normal Breath Sounds. Negative for: Respiratory Distress Gastrointestinal/Abdominal: Positive for: Normal Exam, Soft. Negative for: Tenderness Back: Negative for: L CVA Tenderness, R CVA Tenderness, Vertebral Tenderness Extremity: Positive for: Normal ROM (upper and lower extremities). Negative for : Tenderness, Deformity, Swelling Neurologic/Psych: Positive for: Alert, Oriented. Negative for: Motor/Sensory Deficits - Laboratory Results Result Diagrams: 02/10/18 15:48 02/10/18 15:48 Interpretation Of Abn Labs: no acute - ECG ECG: Positive for: Interpreted By Me, Viewed By Me ECG Rhythm: Positive for: Normal QRS, Normal ST Segment, Sinus Rhythm O2 Sat by Pulse Oximetry: 100 (RA) Pulse Ox Interpretation: Normal - Radiology X-Ray: Interpreted by Me, Viewed By Me X-Ray Interpretation: No Acute Disease - Progress ED Course And Treament: 1637: Spoke with Dr. Jeff. Will admit tele obs. Will give further orders when pt. reaches floor. Pt. is pain free. Tolerated PO. Medical Decision Making Medical Decision Making: Time: 15:00 Initial Impression: chest pain Initial Plan: --EKG --CMP --Troponin I --CBC w/ differential --PTT --PT --Chest portable [RAD] --Aspirin 325mg PO --Sodium Chloride 500 ml IV 100 mls/hr --Reevaluation ----- Scribe Attestation: Documented by Yared Singh, acting as a scribe for Dax Terry MD. Provider Scribe Attestation: All medical record entries made by the Scribe were at my direction and personally dictated by me. I have reviewed the chart and agree that the record accurately reflects my personal performance of the history, physical exam, medical decision making, and the department course for this patient. I have also personally directed, reviewed, and agree with the discharge instructions and disposition. Disposition - Clinical Impression Clinical Impression: Chest pain - Patient ED Disposition Is Patient to be Admitted: Yes Counseled Patient/Family Regarding: Studies Performed, Diagnosis - Disposition Disposition Time: 16:00 Condition: FAIR
[2018-02-10] MEDS ORDERED: Sodium Chloride 0.9% 500 ML IV STA (15:26)
[2018-02-10 15:58] LABS: BASO % 0.4 % (0.0-2.0); EOS # 0.1 K/uL (0.0-0.7); EOS % 1.3 % (0.0-4.0); HEMOGLOBIN 13.3 g/dL (12.0-16.0); LYMPH # 2.6 K/uL (1.0-4.3); LYMPH % 36.1 % (20.0-40.0); MEAN CORPUSCULAR HEMOGLOBIN 30.2 pg (27.0-31.0); MEAN CORPUSCULAR HGB CONC 34.3 g/dL (33.0-37.0); MEAN PLATELET VOLUME 9.4 fl (7.2-11.7); MONO # 0.7 K/uL (0.0-0.8); NEUT # 3.9 K/uL (1.8-7.0); NEUT % 53.2 % (50.0-75.0); NRBC % 0.1 % (0.0-0.0); RBC 4.39 Mil/uL (3.80-5.20); RED CELL DISTRIBUTION WIDTH 13.4 % (11.5-14.5); WHITE BLOOD COUNT 7.3 K/uL (4.8-10.8)
[2018-02-10 16:11] LABS: ALB/GLOB RATIO 1.2 (1.0-2.1); ALBUMIN 3.8 g/dL (3.5-5.0); ALT/SGPT 27 U/L (9-52); AST/SGOT 32 U/L (14-36); BLOOD UREA NITROGEN 10 mg/dl (7-17); CALCIUM 9.4 mg/dL (8.4-10.2); GFR AFRICAN-AMERICAN > 60; GFR NON-AFRICAN AMERICAN > 60
[2018-02-10 16:12] LABS: INR 0.9 (0.9-1.2); PARTIAL THROMBOPLASTIN TIME 29.6 Seconds (25.6-37.1); PROTHROMBIN TIME 9.9 Seconds (9.8-13.1)
--- NOTE | 2018-02-10 16:27 | RAD ---
HISTORY: pain COMPARISON: 06/18/2017 FINDINGS: LUNGS: No active pulmonary disease. PLEURA: No significant pleural effusion identified, no pneumothorax apparent. CARDIOVASCULAR: Normal. OSSEOUS STRUCTURES: No significant abnormalities. VISUALIZED UPPER ABDOMEN: Normal. OTHER FINDINGS: None. IMPRESSION: No active disease.
[2018-02-10] MEDS ORDERED: Aspirin 325 mg EC Tablets PO ONE (16:37)
[2018-02-10 20:22] VITALS: RESP 18
[2018-02-10] MEDS ORDERED: Apap-Butalbital-Caffeine 325-50-40mg Tab PO PRN (21:17)
[2018-02-10] MEDS ORDERED: POLYETHYLENE GLYCOL 3350 17 GM/Dose PACKET PO PRN (21:17)
[2018-02-10] MEDS ORDERED: Pravastatin Sodium 40 MG TAB PO SCH (22:00)
[2018-02-11 07:53] VITALS: O2SAT 97
[2018-02-11] MEDS ORDERED: Multivitamin With Minerals Tab PO SCH (09:00)
[2018-02-11] MEDS ORDERED: Enoxaparin 40 mg Syringe SC SCH (09:00)
[2018-02-11] MEDS ORDERED: Metoprolol Succinate 25 mg XL Tab PO SCH (09:00)
[2018-02-11] MEDS ORDERED: Pantoprazole 40 mg EC Tab PO SCH (09:00)
--- NOTE | 2018-02-11 09:07 | CP.PCM.CON ---
History of Present Illness - History of Present Illness History of Present Illness: Consultation for evaluation of chest pain HPI: 72 year old female with hx of HTN, dyslipidemia , s/p LHCx in 06/16 which showed moderate LAD disease , was clinically asymptomatic on medical management presenting with c/o chest pains and dizziness for 4 hours prior to presentation. Says that symptoms started while she was working in her house. Review of Systems - Review of Systems Systems not reviewed;Unavailable: Acuity of Condition - Constitutional Constitutional: As Per HPI - EENT Eyes: As Per HPI Ears: As Per HPI Nose/Mouth/Throat: As Per HPI - Breasts Breasts: As Per HPI - Cardiovascular Cardiovascular: As Per HPI - Respiratory Respiratory: As Per HPI - Gastrointestinal Gastrointestinal: As Per HPI - Genitourinary Genitourinary: As Per HPI - Reproductive: Female Reproductive:Female: As Per HPI - Menstruation Menstruation: As Per HPI - Musculoskeletal Musculoskeletal: As Per HPI - Integumentary Integumentary: As Per HPI - Neurological Neurological: As Per HPI - Psychiatric Psychiatric: As Per HPI - Endocrine Endocrine: As Per HPI - Hematologic/Lymphatic Hematologic: As Per HPI Past Patient History - Infectious Disease Hx of Infectious Diseases: None - Tetanus Immunizations Tetanus Immunization: Unknown - Past Medical History & Family History Past Medical History?: Yes - Past Social History Smoking Status: Never Smoked - CARDIAC Hx Cardiac Disorders: Yes - PULMONARY Hx Respiratory Disorders: No - NEUROLOGICAL Hx Neurological Disorder: No - HEENT Hx HEENT Problems: No - RENAL Hx Chronic Kidney Disease: No - ENDOCRINE/METABOLIC Hx Endocrine Disorders: No - HEMATOLOGICAL/ONCOLOGICAL Hx Human Immunodeficiency Virus (HIV): No - INTEGUMENTARY Hx Dermatological Problems: No - MUSCULOSKELETAL/RHEUMATOLOGICAL Hx Musculoskeletal Disorders: Yes Hx Falls: No - GASTROINTESTINAL Hx Gastritis: Yes - GENITOURINARY/GYNECOLOGICAL Hx Genitourinary Disorders: No - PSYCHIATRIC Hx Psychophysiologic Disorder: Yes Hx Substance Use: No - SURGICAL HISTORY Hx Surgeries: Yes Hx Section: Yes (x 1) - ANESTHESIA Hx Anesthesia: Yes Hx Anesthesia Reactions: No Hx Malignant Hyperthermia: No Meds Allergies/Adverse Reactions: Allergies Allergy/AdvReac Type Severity Reaction Status Date / Time No Known Allergies Allergy Verified 09/16/15 20:24 - Medications Medications: Current Medications Acetaminophen/Butalbital/Caffeine (Fioricet) 1 tab PO Q4 PRN PRN Reason: Migraine headache Alprazolam (Xanax) 0.25 mg PO Q12 [facility] Stop: 02/17/18 22:01 Last Admin: 02/11/18 08:33 Dose: 0.25 mg Enoxaparin Sodium (Lovenox) 40 mg SC DAILY [facility] PRN Reason: Protocol Last Admin: 02/11/18 08:34 Dose: 40 mg Losartan Potassium (Cozaar) 25 mg PO DAILY [facility] Last Admin: 02/11/18 08:34 Dose: 25 mg Meclizine HCl (Antivert) 25 mg PO Q8 PRN PRN Reason: Dizziness Metoprolol Succinate (Toprol Xl) 25 mg PO DAILY [facility] Last Admin: 02/11/18 08:34 Dose: 25 mg Multivitamins/Minerals (Therapeutic-M Tab) 1 tab PO DAILY [facility] Last Admin: 02/11/18 08:34 Dose: 1 tab Pantoprazole Sodium (Protonix Ec Tab) 40 mg PO DAILY [facility] Last Admin: 02/11/18 08:34 Dose: 40 mg Polyethylene Glycol (Miralax) 17 gm PO BID PRN PRN Reason: Constipation Pravastatin Sodium (Pravachol) 40 mg PO HS [facility] Last Admin: 02/10/18 22:41 Dose: 40 mg Physical Exam - Constitutional Appears: Well - Head Exam Head Exam: ATRAUMATIC, NORMAL INSPECTION, NORMOCEPHALIC - Eye Exam Eye Exam: EOMI, Normal appearance, PERRL Pupil Exam: NORMAL ACCOMODATION, PERRL - ENT Exam ENT Exam: Mucous Membranes Moist, Normal Exam - Neck Exam Neck exam: Positive for: Normal Inspection - Respiratory Exam Respiratory Exam: Clear to Auscultation Bilateral, NORMAL BREATHING PATTERN - Cardiovascular Exam Cardiovascular Exam: REGULAR RHYTHM, +S1, +S2, Systolic Murmur - GI/Abdominal Exam GI & Abdominal Exam: Normal Bowel Sounds, Soft. absent: Tenderness - Extremities Exam Extremities exam: Positive for: normal inspection - Back Exam Back exam: NORMAL INSPECTION - Neurological Exam Neurological exam: Alert, CN II-XII Intact, Normal Gait, Oriented x3, Reflexes Normal - Psychiatric Exam Psychiatric exam: Normal Affect, Normal Mood - Skin Skin Exam: Dry, Intact, Normal Color, Warm Results - Vital Signs Recent Vital Signs: Last Vital Signs Temp 97.9 F 02/11/18 07:52 Pulse 65 02/11/18 08:34 Resp 18 02/11/18 07:52 BP 117/73 02/11/18 08:34 Pulse Ox 97 02/11/18 07:52 - Labs Result Diagrams: 02/10/18 15:48 02/10/18 15:48 Labs: Laboratory Results - last 24 hr 02/10/18 02/10/18 02/10/18 15:48 15:48 15:48 WBC 7.3 RBC 4.39 Hgb 13.3 Hct 38.6 MCV 88.0 MCH 30.2 MCHC 34.3 RDW 13.4 Plt Count 221 MPV 9.4 Neut % (Auto) 53.2 Lymph % (Auto) 36.1 [place] % (Auto) 9.0 Eos % (Auto) 1.3 Baso % (Auto) 0.4 Neut # (Auto) 3.9 Lymph # (Auto) 2.6 [place] # (Auto) 0.7 Eos # (Auto) 0.1 Baso # (Auto) 0.0 PT 9.9 INR 0.9 APTT 29.6 Sodium 143 Potassium 4.3 Chloride 105 Carbon Dioxide 29 Anion Gap 13 BUN 10 Creatinine 0.5 L Est GFR ( Amer) > 60 Est GFR (Non-Af Amer) > 60 Random Glucose 76 Calcium 9.4 Total Bilirubin 0.6 AST 32 ALT 27 Alkaline Phosphatase 84 Troponin I < 0.0120 Total Protein 7.1 Albumin 3.8 Globulin 3.3 Albumin/Globulin Ratio 1.2 02/11/18 00:01 WBC RBC Hgb Hct MCV MCH MCHC RDW Plt Count MPV Neut % (Auto) Lymph % (Auto) [place] % (Auto) Eos % (Auto) Baso % (Auto) Neut # (Auto) Lymph # (Auto) [place] # (Auto) Eos # (Auto) Baso # (Auto) PT INR APTT Sodium Potassium Chloride Carbon Dioxide Anion Gap BUN Creatinine Est GFR ( Amer) Est GFR (Non-Af Amer) Random Glucose Calcium Total Bilirubin AST ALT Alkaline Phosphatase Troponin I < 0.0120 Total Protein Albumin Globulin Albumin/Globulin Ratio Assessment & Plan (1) Chest pain Status: Acute (2) Dyslipidemia Status: Acute (3) Dizziness Status: Acute (4) Hypertension Status: Chronic
[2018-02-11 09:13] LABS: BASO % 0.6 % (0.0-2.0); EOS # 0.1 K/uL (0.0-0.7); EOS % 1.5 % (0.0-4.0); HEMOGLOBIN 14.2 g/dL (12.0-16.0); LYMPH # 2.5 K/uL (1.0-4.3); LYMPH % 39.8 % (20.0-40.0); MEAN CELL VOLUME 87.9 fl (81.0-99.0); MEAN CORPUSCULAR HEMOGLOBIN 29.4 pg (27.0-31.0); MEAN CORPUSCULAR HGB CONC 33.4 g/dL (33.0-37.0); MEAN PLATELET VOLUME 9.5 fl (7.2-11.7); MONO # 0.5 K/uL (0.0-0.8); MONO % 7.9 % (0.0-10.0); NEUT # 3.1 K/uL (1.8-7.0); NEUT % 50.2 % (50.0-75.0); NRBC % 0.1 % (0.0-0.0); RBC 4.82 Mil/uL (3.80-5.20); RED CELL DISTRIBUTION WIDTH 13.6 % (11.5-14.5); WHITE BLOOD COUNT 6.2 K/uL (4.8-10.8)
[2018-02-11 09:29] LABS: ALB/GLOB RATIO 1.2 (1.0-2.1); ALBUMIN 4.1 g/dL (3.5-5.0); ALT/SGPT 30 U/L (9-52); AST/SGOT 33 U/L (14-36); BLOOD UREA NITROGEN 9 mg/dl (7-17); CALCIUM 9.1 mg/dL (8.4-10.2); GFR AFRICAN-AMERICAN > 60; GFR NON-AFRICAN AMERICAN > 60; HDL CHOLESTEROL 27 MG/DL (30-70)
--- NOTE | 2018-02-11 09:35 | CP.PCM.HP ---
History of Present Illness - History of Present Illness History of Present Illness: CC: chest pain HPI: 72 y/o woman w/ pmh of HTN, HLD presented to ED w/ chest pain. Patient reports chest pain started 4 hours prior to ED arrival. Patient reports pain is pressure-like in nature, left sided, non-radiating, no alleviating/ exacerbating factors, occurred while cleaning her house. Patient denies headaches, SOB, abdominal pain, nasuea, vomiting, diarrhea, dysuria, or fever. PMD: Dr. Correa PMH: HTN, HLD meds: see med list allergies: NKDA PSH: , cath 05/2017 Fam: non-contributory SOC: denies smoking, alcohol, and drugs ROS: 12 points assessed and negative unless otherwise reported in HPI Present on Admission - Present on Admission Any Indicators Present on Admission: No History of DVT/PE: No History of Uncontrolled Diabetes: No Urinary Catheter: No Decubitus Ulcer Present: No Review of Systems - Review of Systems All systems: reviewed and no additional remarkable complaints except - Constitutional Constitutional: absent: Chills, Fever - EENT Eyes: absent: Change in Vision - Cardiovascular Cardiovascular: As Per HPI, Chest Pain. absent: Palpitations - Respiratory Respiratory: absent: Dyspnea - Gastrointestinal Gastrointestinal: absent: Abdominal Pain, Diarrhea, Nausea, Vomiting - Genitourinary Genitourinary: absent: Dysuria - Integumentary Integumentary: absent: Rash - Neurological Neurological: absent: Headaches Past Patient History - Infectious Disease Hx of Infectious Diseases: None - Tetanus Immunizations Tetanus Immunization: Unknown - Past Medical History & Family History Past Medical History?: Yes - Past Social History Smoking Status: Never Smoked - CARDIAC Hx Cardiac Disorders: Yes - PULMONARY Hx Respiratory Disorders: No - NEUROLOGICAL Hx Neurological Disorder: No - HEENT Hx HEENT Problems: No - RENAL Hx Chronic Kidney Disease: No - ENDOCRINE/METABOLIC Hx Endocrine Disorders: No - HEMATOLOGICAL/ONCOLOGICAL Hx Human Immunodeficiency Virus (HIV): No - INTEGUMENTARY Hx Dermatological Problems: No - MUSCULOSKELETAL/RHEUMATOLOGICAL Hx Musculoskeletal Disorders: Yes Hx Falls: No - GASTROINTESTINAL Hx Gastritis: Yes - GENITOURINARY/GYNECOLOGICAL Hx Genitourinary Disorders: No - PSYCHIATRIC Hx Psychophysiologic Disorder: Yes Hx Substance Use: No - SURGICAL HISTORY Hx Surgeries: Yes Hx Section: Yes (x 1) - ANESTHESIA Hx Anesthesia: Yes Hx Anesthesia Reactions: No Hx Malignant Hyperthermia: No Meds Allergies/Adverse Reactions: Allergies Allergy/AdvReac Type Severity Reaction Status Date / Time No Known Allergies Allergy Verified 09/16/15 20:24 Physical Exam - Constitutional Appears: Non-toxic, No Acute Distress - Head Exam Head Exam: ATRAUMATIC, NORMAL INSPECTION, NORMOCEPHALIC - Eye Exam Eye Exam: Normal appearance - ENT Exam ENT Exam: Mucous Membranes Moist - Neck Exam Neck exam: Positive for: Full Rom. Negative for: Tenderness - Respiratory Exam Respiratory Exam: Clear to Auscultation Bilateral. absent: Accessory Muscle Use , Decreased Breath Sounds, Rales, Rhonchi, Wheezes, Respiratory Distress - Cardiovascular Exam Cardiovascular Exam: REGULAR RHYTHM. absent: Tachycardia - GI/Abdominal Exam GI & Abdominal Exam: Normal Bowel Sounds, Soft. absent: Distended, Tenderness - Extremities Exam Extremities exam: Positive for: normal inspection. Negative for: calf tenderness - Neurological Exam Neurological exam: Alert, CN II-XII Intact, Normal Gait, Oriented x3 - Skin Skin Exam: Dry, Intact, Normal Color, Warm Results - Vital Signs Recent Vital Signs: Last Vital Signs Temp 97.9 F 02/11/18 07:52 Pulse 65 02/11/18 08:34 Resp 18 02/11/18 07:52 BP 117/73 02/11/18 08:34 Pulse Ox 97 02/11/18 07:52 - Labs Result Diagrams: 02/11/18 09:02 02/11/18 09:02 Labs: Laboratory Results - last 24 hr 02/10/18 02/10/18 02/10/18 15:48 15:48 15:48 WBC 7.3 RBC 4.39 Hgb 13.3 Hct 38.6 MCV 88.0 MCH 30.2 MCHC 34.3 RDW 13.4 Plt Count 221 MPV 9.4 Neut % (Auto) 53.2 Lymph % (Auto) 36.1 [place] % (Auto) 9.0 Eos % (Auto) 1.3 Baso % (Auto) 0.4 Neut # (Auto) 3.9 Lymph # (Auto) 2.6 [place] # (Auto) 0.7 Eos # (Auto) 0.1 Baso # (Auto) 0.0 PT 9.9 INR 0.9 APTT 29.6 Sodium 143 Potassium 4.3 Chloride 105 Carbon Dioxide 29 Anion Gap 13 BUN 10 Creatinine 0.5 L Est GFR ( Amer) > 60 Est GFR (Non-Af Amer) > 60 Random Glucose 76 Calcium 9.4 Total Bilirubin 0.6 AST 32 ALT 27 Alkaline Phosphatase 84 Troponin I < 0.0120 Total Protein 7.1 Albumin 3.8 Globulin 3.3 Albumin/Globulin Ratio 1.2 Triglycerides Cholesterol HDL Cholesterol 02/11/18 02/11/18 02/11/18 00:01 09:02 09:02 WBC 6.2 RBC 4.82 Hgb 14.2 Hct 42.4 MCV 87.9 MCH 29.4 MCHC 33.4 RDW 13.6 Plt Count 247 MPV 9.5 Neut % (Auto) 50.2 Lymph % (Auto) 39.8 [place] % (Auto) 7.9 Eos % (Auto) 1.5 Baso % (Auto) 0.6 Neut # (Auto) 3.1 Lymph # (Auto) 2.5 [place] # (Auto) 0.5 Eos # (Auto) 0.1 Baso # (Auto) 0.0 PT INR APTT Sodium 143 Potassium 4.5 Chloride 103 Carbon Dioxide 31 H Anion Gap 14 BUN 9 Creatinine 0.5 L Est GFR ( Amer) > 60 Est GFR (Non-Af Amer) > 60 Random Glucose 89 Calcium 9.1 Total Bilirubin 0.9 AST 33 ALT 30 Alkaline Phosphatase 72 Troponin I < 0.0120 Total Protein 7.7 Albumin 4.1 Globulin 3.5 Albumin/Globulin Ratio 1.2 Triglycerides 288 H D Cholesterol 215 H HDL Cholesterol 27 L Assessment & Plan (1) Chest pain Status: Acute (2) Hyperlipemia, mixed Status: Chronic (3) Hypertension Status: Chronic - Assessment and Plan (Free Text) Plan: afebrile, non-tachycardic, normotensive cardiology recommendations appreciated EKG: NSR, no acute ST elevation/depression CXR: no active cardiopulmonary disease process troponin x3 negative Lipid panel: trig 288, chol 215, LDL 137, HDl 27 CBC WNL IVF NS 1L @ 100 mL/hr c/w home medications prophylactic measures: DVT lovenox 40 mg SC daily monitor for acute changes Dispo: DC home, cleared by cardiology, follow up w/ PMD and lockmaker in 1-2 weeks Addendum Addendum: 02/11/18 11:47 Patient cleared for DC home by cardiology Patient to follow up w/ PMD and lockmaker in 1-2 weeks
[2018-02-11 09:40] LABS: LDL CHOLESTEROL 137 mg/dL (0-129)
[2018-02-11 11:57] VITALS: BP 122/76; PULSE 60; TEMP 98.5
--- NOTE | 2018-02-12 11:14 | CARD ---
APPROVED REPORT EKG Measurement Heart [id number] <Conclusion> Normal sinus rhythm Normal ECG
== END 2018-02-11 13:32 | disposition home or self-care (01) ==
LOC: H.ER 14:44 → H.ERHOLD 16:39 → H.TEL 20:55
PROVIDERS: ADMIT Internal Medicine; ATTEND Internal Medicine
DX: R07.9 Chest pain, unspecified (principal); E78.2 Mixed hyperlipidemia; I10 Essential (primary) hypertension; R42 Dizziness and giddiness; R53.1 Weakness; F32.9 Major depressive disorder, single episode, unspecified; F41.9 Anxiety disorder, unspecified; K29.70 Gastritis, unspecified, without bleeding; I25.10 Atherosclerotic heart disease of native coronary artery without angina pectoris; Z98.61 Coronary angioplasty status
CPT/HCPCS: 36415; 71045; 80053; 80061; 82607; 84443; 84484; 85025; 85610; 85730; 96360; 96361; 99285; G0378; J1650; J7040

== ENCOUNTER 2018-12-18 13:59 | Emergency (ER) | payer OTHER ==
[2018-12-18 13:59] VITALS: BMI 21.4
[2018-12-18 14:17] VITALS: BP 147/73; PULSE 62; RESP 16; TEMP 98.1; O2SAT 99
--- NOTE | 2018-12-18 14:37 | ED PDOC ---
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 denies: Cough Ear Symptoms: Bilateral: None Severity: Moderate Additional Complaint(s): 73 year old female with a past medical history of hypertension presents to the ED for an evaluation of an ENT problem that started 3x days ago. Patient states that she has been experiencing bodyaches (mostly neck and upper back), a sore throat, and headaches. Patient also reports having a tactile fever, rhinorrhea, nasal congestion, a decrease in appetite and fluid intake, and possible sick contacts (her children). Patient reports taking naproxen (last dose was yesterday) with mild relief. Patient denies having any recent travel, cough, chest pain, changes in vision, difficulty swallowing, and shortness of breath. PMD: Myles Licona MD Past Medical History Reviewed: Historical Data, Nursing Documentation, Vital Signs Vital Signs: Last Vital Signs Temp 98.1 F 12/18/18 14:15 Pulse 62 12/18/18 14:15 Resp 16 12/18/18 14:15 BP 147/73 12/18/18 14:15 Pulse Ox 99 12/18/18 14:15 ABRAHAM Report Viewed: Yes - Medical History PMH: Anxiety, Depression, Gastritis, HTN, Hypercholesterolemia, Hyperlipidemia Denies: Asthma, Diabetes, HIV, Chronic Kidney Disease - Surgical History Surgical History: Pacemaker, Other surgeries: cataract surgery 2x years ago - Family History Family History: States: Hypertension - Social History Current smoker - smoking cessation education provided: No Alcohol: None Drugs: Denies - Immunization History Hx Tetanus Toxoid Vaccination: No Hx Influenza Vaccination: No Hx Pneumococcal Vaccination: Yes - Home Medications Home Medications: Ambulatory Orders Medication Instructions Recorded ALPRAZolam [Xanax] 0.25 mg PO Q12 06/11/17 Omeprazole 40 mg PO DAILY 06/11/17 Metoprolol Succinate XL [Toprol XL] 25 mg PO DAILY #30 tab 06/16/17 Acetaminophen/Butalbital/Caf 1 tab PO Q4 PRN 02/10/18 [Fioricet] Losartan [Cozaar] 25 mg PO DAILY 02/10/18 Meclizine [Meclizine*] 25 mg PO Q8 PRN 02/10/18 Multivitamin [Multi-Vitamin Daily] 1 tab PO DAILY 02/10/18 Polyethylene Glycol 3350 [Miralax] 17 gm PO BID PRN 02/10/18 Pravastatin Sodium [Pravachol] 40 mg PO HS 02/10/18 Amoxicillin/Clavulanate [Augmentin 1 tab PO BID 10 Days #20 tab 12/18/18 875 MG-125 MG] - Allergies Allergies/Adverse Reactions: Allergies Allergy/AdvReac Type Severity Reaction Status Date / Time No Known Allergies Allergy Verified 09/16/15 20:24 Review of Systems ROS Statement: Except As Marked, All Systems Reviewed And Found Negative Constitutional: Positive for: Fever (tactile), Weakness, Other (decrease in appetite and fluid intake, bodyaches (upper back and neck)) ENT: Positive for: Nose Discharge (clear), Nose Congestion, Throat Pain. Negative for: Other (difficulty swallowing) Respiratory: Negative for: Cough, Shortness of Breath Neurological: Positive for: Headache Physical Exam - Reviewed Nursing Documentation Reviewed: Yes Vital Signs Reviewed: Yes - Physical Exam Comments: GENERAL APPEARANCE: Patient is awake, alert, oriented x 3, in no acute distress. SKIN: Warm, dry; (-) cyanosis. EYES: (-) conjunctival pallor. ENMT: TMs non-bulging, non-erythematous. Mucous membranes moist. (+) frontal sinus tenderness. Mouth: fair dentition, Airway patent: (-) stridor. Pharynx: (-) swelling, (+)erythema, (-) enlarged tonsils, (-) tonsilar exudates. NECK: (-) tenderness, (-) stiffness, (+) bilateral anterior cervical lymphadenopathy. (-) bruits. Full ROM. (-) meningismus. CHEST AND RESPIRATORY: (-) rhonchi, (-) rales, (-) wheezes, (-) pleural rub; breath sounds equal bilaterally. HEART AND CARDIOVASCULAR: (-) irregularity; (-) murmur, (-) gallop. ABDOMEN AND GI: Soft; (-) tenderness. EXTREMITIES: (-) deformity; (-) edema. NEURO AND PSYCH: Mental status as above. Cranial nerves grossly intact; strength symmetric. - ECG O2 Sat by Pulse Oximetry: 99 (RA) Pulse Ox Interpretation: Normal Medical Decision Making Medical Decision Makin:20 Initial impression: 73 year old female with sinusitis vs pharyngitis Initial plan: * toradol 30 mg IM * influenza AB * rapid strep * reevaluation 15:30 negative flu and strep pt is feeling better, improved headache and body aches will treat for sinusitis voyce language line used [id number], discussed results, diagnosis, treatment, return precautions abd f/u with pt who is understanding, in agreement and stable for dc Scribe Attestation: Documented by Larisa Vigil, acting as a scribe for Kd Sarabia PA-C. Provider Scribe Attestation: All medical record entries made by the Scribe were at my direction and personally dictated by me. I have reviewed the chart and agree that the record accurately reflects my personal performance of the history, physical exam, medical decision making, and the department course for this patient. I have also personally directed, reviewed, and agree with the discharge instructions and disposition. Disposition - Clinical Impression Clinical Impression: Sinusitis - Patient ED Disposition Is Patient to be Admitted: No Counseled Patient/Family Regarding: Studies Performed, Diagnosis, Need For Followup, Rx Given - Disposition Referrals: Myles Licona MD [Family Provider] - Disposition: Routine/Home Disposition Time: 15:42 Condition: STABLE Additional Instructions: Ant por dejarnos cuidar de ti hoy. Usted fue tratado por infeccin de sinusitis. Raz antibiticos segn lo prescrito hasta terminar. Continuar tomando Naproxeno segn sea necesario para el dolor. Descanse, tome muchos lquidos para mantenerse hidratado. Umair un seguimiento con liz mdico. La atencin mdica de emergencia que recibi hoy se dirigi a ananth sntomas agudos. Si le recetaron algn medicamento, llnelo y tmelo segn las indicaciones. Los sntomas pueden tardar varios velez en resolverse. Regrese al Departamento de Emergencias si ananth sntomas empeoran, no mejoran o si tiene otros problemas. Comunquese con liz mdico dentro de 2 velez para etelvina nueva evaluacin y umair un seguimiento o llame a davion de los mdicos / clnicas a los que maria sido referido y que figuran en el formulario de Informacin de visita al paciente que se incluye en liz paquete de halley. Lleve todos los documentos que recibi al momento del halley junto con los medicamentos que est tomando para liz visita de seguimiento. Nuestro tratamiento no puede reemplazar la atencin mdica continua por parte de un proveedor de atencin primaria (PCP) fuera del departamento de emergencias. Prescriptions: Amoxicillin/Clavulanate [Augmentin 875 MG-125 MG] 1 tab PO BID 10 Days #20 tab Instructions: Sinusitis in Adults, Sinus Headache (DC) Forms: [employer] ([place]) Print Language: JORDANIAN - POA Present On Arrival: None
== END 2018-12-18 15:52 | disposition home or self-care (01) ==
LOC: H.ER 13:59
DX: J32.9 Chronic sinusitis, unspecified (principal); E78.00 Pure hypercholesterolemia, unspecified; F32.9 Major depressive disorder, single episode, unspecified; F41.9 Anxiety disorder, unspecified; I10 Essential (primary) hypertension; Z95.0 Presence of cardiac pacemaker
CPT/HCPCS: 87070; 87430; 87804; 96372; 99283; J1885